=== PATIENT | female | born 1935 | race Caucasian/White ===

== ENCOUNTER 2024-07-02 09:43 | Outpatient (AMB) | payer MEDICARE, BC, SELFPAY ==
[2024-07-02 10:14] VITALS: BP 96/57; PULSE 57; RESP 18; TEMP 36.3; O2SAT 92; BMI 29.9
--- NOTE | 2024-07-02 10:14 | ORTHONT_ITS ---
Vital signs 07/02/24 10:14 Height 1.52 m Height Method Stated Weight 69.116 kg Weight Measurement Method Standing Scale BMI 29.9 BP 96/57 L Blood Pressure Source Automatic Cuff Blood Pressure Location Left Upper Arm Position Sitting Respiration 18 Pulse 57 L Pulse Source Monitor Temp 97.4 F Temp Source Temporal Artery Scan Pulse Oximetry (%) 92 L Oxygen Delivery Method Room Air Med/Allergies Allergies & Medications Allergies latex Allergy (Severe, Verified 07/02/24 10:15) ITCHING,WELTS Penicillins Allergy (Severe, Verified 07/02/24 10:15) ANAPHYLATIC Medication Reconciliation hydrocodone 5 mg-acetaminophen 325 mg tablet 1 tab PO Q12H PRN pain #14 tabs 04/21/23 [Rx Confirmed 07/02/24] meloxicam 7.5 mg tablet 7.5 mg PO QDAY #14 tabs 04/23/24 [Rx Confirmed 07/02/24] alprazolam 0.5 mg tablet 0.5 mg PO QDAY 06/11/24 [History Confirmed 07/02/24] atorvastatin 40 mg tablet 40 mg PO QDAY 06/11/24 [History Confirmed 07/02/24] benazepril 40 mg tablet 40 mg PO QDAY 06/11/24 [History Confirmed 07/02/24] gabapentin 300 mg capsule 300 mg PO QDAY 06/11/24 [History Confirmed 07/02/24] semaglutide 1 mg/dose (4 mg/3 mL) subcutaneous pen injector (Ozempic) 1 mg subcut QWEEK 06/11/24 [History Confirmed 07/02/24] Subjective Visit Visit for: follow up visit and knee Immunization / Flu Flu Vaccine in the Last 12 Months: No Flu Vaccine Exclusion Criteria: No Exclusion Criteria History of Present Illness Chief complaint: FOLLOW Date of injury / onset of symptoms: FELL 3-4 MONTHS AGO Tia is a pleasant 88-year-old female who had a fall directly onto her knee in April 23, 2024. She was delayed in getting to see us. She did wear a knee brace but has been walking around on it With minimal pain. She is able to perform a straight leg raise and walk with little difficulty. She does have a history of left knee arthritis. She would like a left knee injection today Personal History Occupation: RETIRED Red flag PMH: none Pain Pain level (0-10): 5 Pain duration: WITH MOVEMENT Pain location: outside (lateral) and other (specify) (LEG) Pain quality: sharp Pain timing: increases with activity Associated signs & symptoms: weakness, stiffness and none Ambulatory data Ambulatory device: walker Treatments Improvement with previous injections: No Improvement with PT: No Improvement with NSAIDS: n/a Review of Systems Review of Systems: All systems negative unless otherwise noted in HPI. Exam Exam Patient is in no acute distress and is cooperative with the examination today. Breathing is nonlabored. Patient has a normal mood and affect. The patient has a gait that is [nonantalgic] Bilateral extremities were evaluated and demonstrates sensation intact to light touch. Palpable pedal pulses are present. No significant edema is present. Bilateral hips were examined. The patient has no pain with log roll of the hips. Internal rotation to 30 degrees and external rotation to 30 degrees is painless. Negative FADIR. Right knee was examined today. The right knee is in reasonable alignment. Range of motion from 0-120 degrees. Knee is stable to varus and valgus as well as AP translation with <5mm. Patient has a negative McMurrays. There is no pain with patellofemoral compression and no crepitus noted. The knee is nontender to palpation. Left knee was examined today. The left knee is in [neutral] alignment. Range of motion from [0-120] degrees. Knee is stable to varus and valgus as well as AP translation with <5mm. Patient has a [negative] [place]. There is [no] pain with patellofemoral compression and [no] crepitus noted. The knee is [nontender] to palpation [diffusely]. She is able to perform a straight leg raise X-rays demonstrate in the third of the right ankle left knee. There is a patella fracture that can still be visualized. Appears to be stable and has not moved in the last 3 months. Assessment and Plan Problem List (1) Left patella fracture: Status: Acute Plan: Patient is a 88-year-old female with left knee pain and left knee arthritis. We discussed nonoperative and operative options. He is on meloxicam currently and has a history of osteoporotic fractures. We discussed that she may benefit from being on a bone building medication.She would like a left knee injection today Recommend knee cortisone injection as patient would like to proceed with conservative treatment at this time. The risks and benefits of the procedure were reviewed with the patient and patient gave verbal consent to continue with the procedure. Procedure: performed by Dr. Rahman Using sterile technique the left knee was thoroughly prepped with alcohol, and approximately 1 cc of Kenalog 40 mg/mL and 4 cc of 1% lidocaine was injected without resistance into the medial tibial femoral joint space. The patient tolerated the procedure well. (2) Arthritis of left knee: Status: Acute Advanced Care Planning Discussion Advance care planning discussed with:: patient Office Procedures GNS Level of Care Nursing/Assessment Patient Status: Established Patient Nursing Assessment/Reassesment: Medication Reconciliation, Update PMH in EMR and Vital Signs Coordination of Care: Complex Care and Chronic Disease 1-5, Education Complex Pt/Fam, Consent,records obtained, informed consent, Results/Orders obtained and Staff clarify orders Established Patient Charge Established Patient Point Assignment: 95 Established Patient Point Charge: EP Level 3 (80-115) Surgical Proc/IM SQ injection Major Surgical Procedure: Yes (KNEE INJECTION ) Medication Given Medication Given Medication Given: Yes Documented Dose Given: 20 Route: Infiitration Medication Given Medication Given Medication Given: Yes Documented Dose Given: 1 Route: Infiitration Office Meds Xylocaine 10 mg/mL (1 %) injection solution Performing Provider: Federico Rahman MD Performing Location: [facility] Administered by: Federico Rahman MD on 07/02/24 11:10 Dose Route Admin Location Dispensed Lot Number Expiration Date [place] Glass Sagger 20 mL Infiltration 20 mL [id number] triamcinolone acetonide 40 mg/mL suspension for injection Performing Provider: Federico Rahman MD Performing Location: [facility] Administered by: Federico Rahman MD on 07/02/24 11:10 Dose Route Admin Location Dispensed Lot Number Expiration Date [facility] Glass Sagger 40 mg intra-articular 1 mL [id number] Past Medical History Past Medical History Have you ever been diagnosed with any of the following: Cardiology Problems Congestive Heart Failure: No Hypertension: Yes Respiratory Problems Chronic Obstructive Pulmonary Disease (COPD): No Smoking: No Smoking Cessation Counseling: No Smoking Exposure: No Tobacco Use: No Genital/Urinary Problems Renal Disease: No Musculoskeletal Problems Arthritis: Yes Endocrine Problems Diabetes Mellitus Type 1: No Diabetes Mellitus Type 2: Yes
== END 2024-07-02 10:45 | disposition home or self-care (01) ==
LOC: HODSRG 09:44
PROVIDERS: PCP Family Medicine; Referring Provider Family Medicine; Supervising Provider Orthopaedic Surgery Adult Reconstructive Orthopaedic Surgery; Visit Provider Orthopaedic Surgery Adult Reconstructive Orthopaedic Surgery
DX: S82.002D Unspecified fracture of left patella, subsequent encounter for closed fracture with routine healing (principal); W19.XXXD Unspecified fall, subsequent encounter; M17.12 Unilateral primary osteoarthritis, left knee; M25.562 Pain in left knee; I10 Essential (primary) hypertension
CPT/HCPCS: 20610; 99213; J3301; J3490; G0463

== ENCOUNTER → 2024-07-30 | Outpatient (CLI) | payer MEDICARE, BC, SELFPAY ==
[2024-07-30 18:11] LABS: Glucose Estimated Average 171 mg/dL (80-131); Hemoglobin A1C 7.6 % Hgb (4.8-6.0)
[2024-07-30 18:12] LABS: Anion Gap 8 (7-16); BUN/Creatinine Ratio 26 Ratio (12-20); Blood Urea Nitrogen 31 mg/dL (9-23); Calcium 9.4 mg/dL (8.3-10.6); Carbon Dioxide 26.5 mMol/L (20.0-31.0); Chloride 108 mMol/L (98-107); Creatinine (Component) 1.2 mg/dL (0.6-1.3); Glucose 150 mg/dL (74-106); Osmolality,Calculated 292 (275-295); Potassium 4.2 mMol/L (3.4-5.1); Sodium 142 mMol/L (136-145); Thyroid Stimulating Hormone 2.81 uIU/mL (0.55-4.78); eGFR 44 See Note
== END | disposition home or self-care (01) ==
LOC: COPL 16:23
PROVIDERS: PCP Family Medicine; Referring Provider Family Medicine; Visit Provider Family Medicine
DX: E11.9 Type 2 diabetes mellitus without complications (principal); I10 Essential (primary) hypertension
CPT/HCPCS: 36415; 80048; 83036; 84443

== ENCOUNTER → 2024-09-20 | Outpatient (CLI) | payer MEDICARE, BC, SELFPAY ==
--- NOTE | 2024-09-20 12:30 | XR_ITS ---
Examination: Abdomen sonogram, Limited Date and time of exam: September 20, 2024 1259 hours INDICATIONS: Midabdominal left noticed beginning 8 years ago Technique: Real-time cuello scale transabdominal sonographic images of the upper abdomen obtained. Findings: No cystic or solid mass No hernia defect IMPRESSION: No cystic or solid mass
--- NOTE | 2024-09-20 13:00 | XR_ITS ---
Examination: Duplex scan of the upper extremity, unilateral right Date and time of exam: September 20, 2024 1306 hours INDICATIONS: Right arm swelling and pain beginning one week ago Technique: Duplex scan of the extremity veins using B-mode/grayscale imaging and Doppler spectral analysis and color flow Attention is directed to internal echogenicity, compression and augmentation involving these veins, color flow assessment, spectral analysis Findings: Major deep venous structures in the extremity demonstrate normal course and caliber. There is no evidence of deep vein thrombosis. Normal color flow and spectral analysis Impression: Negative for DVT..
== END | disposition home or self-care (01) ==
LOC: CDIM 12:23
PROVIDERS: PCP Family Medicine; Referring Provider Family Medicine; Visit Provider Family Medicine
DX: R22.9 Localized swelling, mass and lump, unspecified (principal); R22.2 Localized swelling, mass and lump, trunk; R22.31 Localized swelling, mass and lump, right upper limb
CPT/HCPCS: 76705; 93971

== ENCOUNTER 2024-10-07 13:32 | Emergency (ER) | payer MEDICARE, BC, SELFPAY ==
[2024-10-07 13:55] VITALS: PULSE 54; RESP 16; O2SAT 87
[2024-10-07 14:30] VITALS: BP 135/69; RESP 16; TEMP 37.4; O2SAT 96
--- NOTE | 2024-10-07 15:02 | XR_ITS ---
Examination: CT brain head without contrast. 2-D sagittal coronal reconstructions Date and time of exam:October 07, 2024 1542 hours Comparison April 23, 2024 INDICATIONS: Altered mental status beginning this morning CTDI: vol (mGy):48.3 DLP: (mGycm):968 Technique: Multiple CT axial sections of the brain have been obtained, 5 mm slice thickness. Contrast has not been administered. 2-D sagittal, coronal reconstructions have been obtained Low dose protocols were performed. One or more of the following dose reduction techniques were used; automated exposure control, adjustment of the mA and/or KV according to patient size, use of iterative reconstruction technique. Findings: No significant ventricular enlargement. 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 No mass effect or midline shift Basal cisterns are not remarkable. Fourth ventricle is midline. Cranial vault intact. Impression: Negative for acute hemorrhage, mass effect or midline shift Advise clinical correlation follow-up accordingly
--- NOTE | 2024-10-07 15:05 | EKG_ITS ---
[facility] Test Date: 2024-10-07 Pat Name: SONALI GARCIA Department: Room: - Gender: Female Instructional Support Specialist: : [id number] Requested By: Ellyn Chambers Order Number: [id number] Reading MD: Ellyn Chambers Measurements Intervals [place] Rate: 51 P: 37 AK: 169 QRS: -30 QRSD: 108 T: 44 QT: 432 QTc: 399 Interpretive Statements SINUS BRADYCARDIA BORDERLINE LEFT AXIS DEVIATION [QRS AXIS < -20] Compared to ECG 04/23/2024 21:50:37 No significant changes /store/S0/[id number].pdf
--- NOTE | 2024-10-07 15:05 | XR_ITS ---
Examination: AP chest single view Technique one AP portable semiupright chest single view Exam date and time: October 07, 2024 1555 hours INDICATIONS: Shortness of breath today. FINDINGS: Normal heart size. No lobar pneumonia or pulmonary edema Prominent osteopenia with old right-sided rib fractures IMPRESSION: No pneumonia or pulmonary edema
--- NOTE | 2024-10-07 15:19 | PD.EDAMS ---
Altered Mental Status RME/HPI General Chief Complaint: Altered Mental Status Stated Complaint: AMS Time Seen by Provider: 10/07/24 14:31 Arrival date/time: 10/07/24 13:32 RME / HPI RME / HPI narrative: Patient is a 89-year-old female with past medical history of hypertension and type 2 diabetes who presented to the ED on 10/07/2024 due to altered mental status starting this morning around 7 am. According to the daughter who is present at bedside, patient was not her usual self and was confused, speaking incomprehensibly, not localizing her gaze, and exhibiting generalized weakness. There was no focal neurologic deficit or facial droop, numbness or single sided weakness. Due to concern for stroke the home RN recommended coming to the hospital. By the time of my evaluation around 2 pm the patient was back to her baseline according to daughter. Patient is awake, interactive, conversational, and oriented x3. Related Data Home Medications ?Medication ?Instructions ?Recorded ?Confirmed alprazolam 0.5 mg tablet 0.5 mg PO QDAY 06/11/24 07/02/24 atorvastatin 40 mg tablet 40 mg PO QDAY 06/11/24 07/02/24 benazepril 40 mg tablet 40 mg PO QDAY 06/11/24 07/02/24 gabapentin 300 mg capsule 300 mg PO QDAY 06/11/24 07/02/24 semaglutide 1 mg/dose (4 mg/3 mL) 1 mg subcut QWEEK 06/11/24 07/02/24 subcutaneous pen injector (Ozempic) Previous Rx's ?Medication ?Instructions ?Recorded hydrocodone 5 mg-acetaminophen 325 1 tab PO Q12H PRN pain #14 tabs 04/21/23 mg tablet meloxicam 7.5 mg tablet 7.5 mg PO QDAY #14 tabs 04/23/24 nitrofurantoin 100 mg PO Q12H 5 days #10 caps 10/07/24 monohydrate/macrocrystals 100 mg capsule (Macrobid) Allergies Allergy/AdvReac Type Severity Reaction Status Date / Time latex Allergy Severe ITCHING,WEL Verified 07/02/24 10:15 TS Penicillins Allergy Severe ANAPHYLATIC Verified 07/02/24 10:15 ED Exam Narrative Physical exam: Physical Exam General: Awake and in no acute distress. Conversational and non-toxic appearing. HEENT: Normocephalic, atraumatic, mucous membranes moist. Heart: Regular rate and rhythm, no murmurs. Lungs: Clear to auscultation with no wheezing or crackles. Abdomen: Soft, nondistended, nontender, positive bowel sounds. ?No guarding or rebound tenderness. Neurologic: Alert and oriented x3, no gross neurological deficit, and patient able to move all 4 extremities. Extremities: No edema. Skin: No rash or ecchymoses. Course Quality Measures none Orders Category Date Time Status EKG (ED ONLY) *Do not use* NOW Care 10/07/24 15:[address] head/brain wo con Stat Exams 10/07/24 15:02 Completed CXR [XR chest 1V] Stat Exams 10/07/24 15:05 Completed EKG (ED Only) Stat Exams 10/07/24 15:05 Draft Acetaminophen Stat Lab 10/07/24 15:35 Completed Alcohol, Blood Medical Stat Lab 10/07/24 15:35 Completed CBC Stat Lab 10/07/24 15:35 Completed CMP [Comprehensive Metabolic Panel] Stat Lab 10/07/24 15:35 Completed Drug Screen,Urine Stat Lab 10/07/24 16:25 Completed Magnesium Stat Lab 10/07/24 15:35 Completed Partial Thromboplastin Time Stat Lab 10/07/24 15:35 Completed Prothrombin Time with INR Stat Lab 10/07/24 15:35 Completed Thyroid Stimulating Hormone Stat Lab 10/07/24 15:35 Completed Urinalysis, C/S if Indicated Stat Lab 10/07/24 16:25 Completed Urine Culture Stat Lab 10/07/24 16:25 Received Vital Signs Vital signs: Vital Signs Temperature 99.3 F 10/07/24 14:30 Respiratory Rate 16 10/07/24 14:30 Blood Pressure 135/69 H 10/07/24 14:30 Pulse Oximetry (%) 96 10/07/24 14:30 Oxygen Delivery Method Room Air 10/07/24 14:30 Procedures -ED EKG Interpretation #1: Date of EK10/07/24 Time of EK:38 Rate: 51 Interpretation: Interpreted by me EKG Impression: Normal sinus rhythm, [place] deviation (left), No acute ST-T changes and Normal QRS Altered Mental Status MDM Narrative MDM Narrative:: Workup is consistent with UTI which may be a cause for the patient's confusion and altered mental status this morning. I am less concerned for stroke or even TIA with the described presentation as there was no focal neurologic deficits described and more like generalized weakness and confusion. Patient will be sent on PO antibiotics as her mentation is back to baseline and she is able to take PO. Patient data External records reviewed:: [facility] previous records Clinical information provided by:: patient and family Social determinants that could affect healthcare access:: none Patient has the following chronic illnesses:: As above How is presenting disease/condition affected by chronic disease/condition?: uneffected by Evaluation data The following diagnostics were reviewed and interpreted by me:: lab results and radiology exam(s) Lab and/or radiology exams considered but not ordered:: Ordered Interpretation Summary: UA is showing 4+ bacteria, 3 WBCs, but no leukocyte esterase and no nitrites. WBC is high at 17.4. CXR was normal, no pneumonia according to my interpretation. Medications / Prescriptions Medications or Prescriptions considered but not ordered:: Given Medication administrations:: Given Consultations Consultation(s) initiated? (list below): No Diagnosis Differential diagnosis altered mental status: altered mental status and delirium Most likely diagnosis given after review of the tests above:: Acute metabolic encephalopathy secondary to UTI Admission Indicated Admission indicated?: not indicated Explain why admission is indicated or not indicated:: Patient back to baseline mental status and cause of AMS found is UTI and can be sent on PO abx. Admission Request Was there a request for admission?: No Disposition Plan Disposition Plan: Discharge Discharge Attestation Discharge Attestation: The patient and all family members were given an opportunity to ask questions and understood the discharge instructions. Discharge instructions specifically effects, indications for sooner follow up or return to the emergency department, and the expected course of current diagnosis. Patient condition: Stable Discharge Plan Plan Patient Disposition: HOME (Self Care) Patient condition on transfer: Stable Prescriptions/Referrals Prescriptions/Med Rec: New nitrofurantoin monohyd/m-cryst [Macrobid] 100 mg capsule 100 mg PO Q12H 5 Days Qty: 10 0RF Rx Instructions: must administer with a meal/food No Action Ozempic 1 mg/dose (4 mg/3 mL) pen injector 1 mg subcut QWEEK gabapentin 300 mg capsule 300 mg PO QDAY alprazolam 0.5 mg tablet 0.5 mg PO QDAY atorvastatin 40 mg tablet 40 mg PO QDAY benazepril 40 mg tablet 40 mg PO QDAY hydrocodone-acetaminophen 5-325 mg tablet 1 tab PO Q12H MDD 2 tabs PRN (Reason: pain) Qty: 14 0RF meloxicam 7.5 mg tablet 7.5 mg PO QDAY Qty: 14 0RF Referrals: Hiral Goss MD [Primary Care Provider] - In 1 week Problem List Clinical Impression: Acute metabolic encephalopathy, Urinary tract infection Patient/Caregiver Discharge Instructions Discharge Activity: activity as tolerated and resume usual activities Education Materials: Urinary Tract Infections in Women, ED Confusion, ED CYSTITIS Female Adult Additional Instructions: Today Julissa was evaluated for possible causes of confusion or what we call altered mental status. A CT scan of the head was negative for any sort of bleed or other possible cause of change in mentation. Due to the lack of specific neurological deficits, a stroke or TIA are probably less likely for the symptoms that prompted today's visit. She was found to have bacteria in her urine most likely indicative of an infection which is common to cause confusion in the elderly. Please take the prescribed antibiotic for the next 5 days. Please follow up with your primary doctor in the next week to ensure they check the urine culture taken while here at the hospital. Return to the ED if symptoms return or worsen. Thank you for allowing us to participate in your care today. Print Language: Nepali Stand Alone Forms: Maryjane Award Info., Patient Portal Info Letter
[2024-10-07 15:41] VITALS: BP 130/64; PULSE 67; RESP 18; O2SAT 92
[2024-10-07 15:41] LABS: Basophils # (Auto) 0.1 Thou/mm3 (0.0-0.2); Basophils % (Auto) 0 % (0-2.5); Eosinophils # (Auto) 0.1 Thou/mm3 (0.0-0.5); Eosinophils % (Auto) 1 % (0-10); Hematocrit 36.6 % (36.0-46.0); Hemoglobin 11.8 g/dL (12.0-16.0); Immature Granulocytes % (Auto) 0 % (0-0); Immature Granulocytes Auto 0.07 Thou/mm3 (0.00-0.00); Lymphocytes # (Auto) 2.4 Thou/mm3 (1.0-4.8); Lymphocytes % (Auto) 14 % (10-50); Mean Corpuscular HGB Conc 32.2 g/dl (31.0-37.0); Mean Corpuscular Hemoglobin 31.1 pg (25.0-35.0); Mean Corpuscular Volume 97 fL (80-100); Monocytes # (Auto) 1.1 Thou/mm3 (0.0-0.8); Monocytes % (Auto) 6 % (0-12); Neutrophils # (Auto) 13.7 Thou/mm3 (1.8-7.7); Neutrophils % (Auto) 79 % (37-80); Nucleated Red Blood Cell % 0 /100 WBC (0); Platelet Count 136 Thou/mm3 (140-440); RDW Standard Deviation 51.3 fL (36.4-46.3); Red Blood Count 3.79 Miln/mm3 (4.00-5.20); White Blood Count 17.4 Thou/mm3 (3.6-11.0)
[2024-10-07 16:01] LABS: Partial Thromboplastin Time 21.4 Seconds (22.0-36.0); Prothrombin Time 11.3 Seconds (9.0-12.2)
[2024-10-07 16:17] VITALS: BP 145/69; PULSE 57; RESP 19; TEMP 37.5; O2SAT 100
[2024-10-07 16:19] LABS: Acetaminophen < 2.0 mcg/mL (10.0-20.0); Alanine Aminotransferase 14 U/L (10-49); Albumin, Serum 3.9 gm/dL (3.4-4.8); Albumin/Globulin Ratio 1.9 (1.2-2.2); Alcohol, Blood Medical < 10.0 mg/dL (0-10.0); Alkaline Phosphatase 96 U/L (46-116); Anion Gap 7 (7-16); Aspartate Amino Transferase 19 U/L (0-34); BUN/Creatinine Ratio 30 Ratio (12-20); Bilirubin,Total 0.8 mg/dL (0.3-1.2); Blood Urea Nitrogen 33 mg/dL (9-23); Calcium 8.7 mg/dL (8.3-10.6); Calcium (Corrected) 8.8 mg/dL (8.5-10.1); Carbon Dioxide 27.9 mMol/L (20.0-31.0); Chloride 108 mMol/L (98-107); Creatinine (Component) 1.1 mg/dL (0.6-1.3); Globulin 2.1 gm/dL (2.3-3.5); Glucose 107 mg/dL (74-106); Magnesium 2.2 mg/dL (1.6-2.6); Osmolality,Calculated 292 (275-295); Potassium 3.9 mMol/L (3.4-5.1); Sodium 143 mMol/L (136-145); Thyroid Stimulating Hormone 1.06 uIU/mL (0.55-4.78); eGFR 49 See Note
[2024-10-07 16:37] LABS: Collection Type, Urine Clean Catch; RBC,Urine 0 /hpf (0-3)
[2024-10-07 17:01] LABS: Amphetamine/Methamp Scrn,U Negative (Negative); Barbiturate Screen,Urine Negative (Negative); Benzodiazepines Screen,Urine Negative (Negative); Benzoylecgonine Screen, Ur Negative (Negative); Fentanyl Screen,Urine Negative (Negative); Opiate Screen,Urine Negative (Negative); THC Screen,Urine Positive (Negative)
[2024-10-07 17:33] LABS: Bacteria,Urine 4+; Bilirubin,Urine Negative (Negative); Blood,Urine Negative (Negative); Clarity,Urine Clear (Clear/Hazy); Color,Urine Lt-Yellow (Lt Yel-Yel); Glucose, Urine 4+ (Negative); Ketones,Urine Negative (Negative); Leukocyte Esterase,Urine Negative (Negative); Nitrite,Urine Negative (Negative); PH,Urine 5.5 (5.0-7.0); Protein,Urine Negative (Neg - Trace); Specific Gravity,Urine 1.026 (1.001-1.035); Squamous Epithelial Cell,Urine 1 /hpf (0-5); Urobilinogen,Urine Negative mg/dL (0.0-1.0); WBC,Urine 3 /hpf (0-5)
[2024-10-07 17:35] LABS: Culture Indicated,Urine Yes
== END 2024-10-07 18:25 | disposition home or self-care (01) ==
PROVIDERS: Student in an Organized Health Care Education/Training Program; Emergency Provider Emergency Medicine; PCP Family Medicine
DX: N39.0 Urinary tract infection, site not specified (principal); G93.41 Metabolic encephalopathy; I10 Essential (primary) hypertension; E11.9 Type 2 diabetes mellitus without complications; Z88.0 Allergy status to penicillin; Z91.040 Latex allergy status
CPT/HCPCS: 36415; 70450; 71045; 80053; 80307; 80320; 80329; 81001; 83735; 84443; 85025; 85610; 85730; 87086; 93005; 99284; G0480

== ENCOUNTER → 2024-10-21 | Outpatient (CLI) | payer MEDICARE, BC, SELFPAY ==
--- NOTE | 2024-10-21 13:28 | XR_ITS ---
Examination: Arterial duplex upper extremity right Date and time of exam: October 21, 2024 1338 hrs. Indications: Right arm swelling and pain beginning 6 weeks ago Findings: Duplex sonographic imaging of the right upper extremity arteries using B-mode/Rodriguez scale imaging and Doppler spectral analysis and color flow. Findings: Elevated peak systolic velocities in the right brachial artery No arterial thrombus Impression: Elevated peak systolic arterial velocities in the right brachial artery, which may be secondary to stenosis proximal to the right brachial artery Suggest CTA right upper extremity with intravenous contrast follow-up
[2024-10-21 14:37] LABS: Anion Gap 8 (7-16); BUN/Creatinine Ratio 32 Ratio (12-20); Blood Urea Nitrogen 41 mg/dL (9-23); Calcium 9.1 mg/dL (8.3-10.6); Carbon Dioxide 28.7 mMol/L (20.0-31.0); Chloride 105 mMol/L (98-107); Creatinine (Component) 1.3 mg/dL (0.6-1.3); Glucose 129 mg/dL (74-106); Osmolality,Calculated 295 (275-295); Potassium 5.1 mMol/L (3.4-5.1); Sodium 142 mMol/L (136-145); eGFR 40 See Note
[2024-10-21 16:29] LABS: Glucose Estimated Average 134 mg/dL (80-131); Hemoglobin A1C 6.3 % Hgb (4.8-6.0)
== END | disposition home or self-care (01) ==
LOC: CDIM 13:52 → COPL 13:54 → CDIM 11-10 08:32
PROVIDERS: PCP Family Medicine; Referring Provider Family Medicine; Visit Provider Family Medicine
DX: I73.9 Peripheral vascular disease, unspecified (principal); R22.31 Localized swelling, mass and lump, right upper limb; E11.65 Type 2 diabetes mellitus with hyperglycemia
CPT/HCPCS: 36415; 80048; 83036; 93931

== ENCOUNTER → 2024-10-24 | Outpatient (CLI) | payer MEDICARE, BC, SELFPAY ==
--- NOTE | 2024-10-24 10:30 | XR_ITS ---
Examination: CTA right upper extremity with intravenous contrast 2-D reconstructions 3-D reconstructions, vascular Date and time of exam: October 24, 2024 at 1115 hrs. Indications: Right upper extremity pain numbness beginning 2 weeks ago, elevated peak systolic velocities in the right brachial artery Arterial Doppler study October 21, 2023 CTDI: vol (mGy) 26.95 DLP: (mGycm) 872.8 Technique: Multiple axial sections of the right lower extremity obtained 2-D sagittal and coronal reconstructions. 3-D angiographic renderings, 3-D volume renderings, 3D post processing, vascular maximum intensity projections obtained. Contrast administered is 100 cc Isovue-370. Low dose protocols were performed. One or more of the following dose reduction techniques were used; automated exposure control, adjustment of the mA and/or KV according to patient size, use of iterative reconstruction technique. Findings: Right subclavian right axillary arteries intact There is no filling of the brachial artery beyond its midportion and no filling of the radial or ulnar arteries or arterial segments of the hand on this study Impression: Essentially diagnostic study This patient should return at no charge for repeat CTA of the upper extremity with proper bolus contrast timing to opacify the arteries of the right arm
== END | disposition home or self-care (01) ==
LOC: CCTX 10:11
PROVIDERS: PCP Family Medicine; Referring Provider Family Medicine; Visit Provider Family Medicine
DX: I70.218 Atherosclerosis of native arteries of extremities with intermittent claudication, other extremity (principal)
CPT/HCPCS: 73206; A4649; Q9967

== ENCOUNTER → 2024-10-25 | Outpatient (CLI) | payer MEDICARE, BC, SELFPAY ==
--- NOTE | 2024-10-25 15:00 | XR_ITS ---
Examination: CTA right upper extremity with intravenous contrast 2-D reconstructions 3-D reconstructions, vascular Date and time of exam: October 25, 2024 1645 hrs. Indications: Right arm size pain beginning 6 weeks ago, at least systolic velocities in the right brachial artery Arterial duplex upper extremity study October 21, 2024 CTDI: vol (mGy) 27.4 DLP: (mGycm) 603 Technique: Multiple axial sections of the right upper extremity have been obtained. 3 mm slice thickness, 2-D sagittal and coronal reconstructions. 3-D angiographic renderings, 3-D volume renderings, 3D post processing, vascular maximum intensity projections obtained. Contrast administered is 100 cc Isovue-370. Low dose protocols were performed. One or more of the following dose reduction techniques were used; automated exposure control, adjustment of the mA and/or KV according to patient size, use of iterative reconstruction technique. Findings: Right subclavian right axillary artery intact Satisfactory opacification of the entire brachial artery with stenoses Intraosseous radial and ulnar arteries also fill to the wrist with no occlusions Impression: Negative for arterial stenoses right upper extremity arteries
== END | disposition home or self-care (01) ==
LOC: SCAT 15:30
PROVIDERS: PCP Family Medicine; Referring Provider Family Medicine; Visit Provider Family Medicine
DX: I70.218 Atherosclerosis of native arteries of extremities with intermittent claudication, other extremity (principal)
CPT/HCPCS: 73206; A4649; Q9967

== ENCOUNTER → 2024-11-04 | Outpatient (CLI) | payer MEDICARE, BC, SELFPAY ==
--- NOTE | 2024-11-04 11:15 | XR_ITS ---
Examination: Screening digital mammography, bilateral Computer aided detection 3-D breast Tomosynthesis, bilateral Date and time of exam: 11/04/2024, 11:15 AM Comparisons: Not available. If prior mammograms can be obtained recommend comparison with today's exam. Indications: Screening Technique: Nonmagnified MLO, CC views of the breasts to been obtained, reconstructed from 3-D Tomosynthesis images. R2 computer aided detection program utilized for evaluation of suspicious masses and/or abnormal calcifications. 3-D Tomosynthesis images obtained. Technologist: Findings: The breasts are heterogeneously dense, which may obscure small masses. No evidence of abnormal masses or suspicious calcifications. Impression: BI-RADS category 1: Negative findings (within normal) Recommend 1 year follow-up mammogram
== END | disposition home or self-care (01) ==
LOC: CDIM 11:04
PROVIDERS: Referring Provider Family Medicine; Visit Provider Family Medicine
DX: Z12.31 Encounter for screening mammogram for malignant neoplasm of breast (principal); R92.313 Mammographic fatty tissue density, bilateral breasts
CPT/HCPCS: 77063; 77067

== ENCOUNTER 2024-12-12 18:03 | Emergency (ER) | payer MEDICARE, BC, SELFPAY ==
[2024-12-12 18:10] VITALS: BP 110/66; PULSE 62; RESP 19; TEMP 36.8; O2SAT 96
[2024-12-12 18:33] VITALS: PULSE 59; RESP 19; O2SAT 97; BMI 27.4
--- NOTE | 2024-12-12 18:44 | PC.NURSE ---
PT BILL FROM HOME, HAD WITNESSED GROUND LEVEL FALL. PT DID HIT HER HEAD DID NOT HAVE ANY LOC, DENIES BLOOD THINNER. NO VISIBLE DEFORMITIES. PT DENYING ANY PAIN UPON ASSUMPTION OF CARE FROM EMS. PT REPORTS SHE NEEDS TO PEE, PLACED ON BEDPAN BY THIS RN. AWAITING PROVIDER EVALUATION
--- NOTE | 2024-12-12 18:54 | XR_ITS ---
Examination: CT lumbar spine, without contrast. 2-D sagittal reconstructions. 2-D coronal reconstructions. 3-D reconstructions. Date and time of exam:November hrs. Indications: Patient fell today with injury to lower back, lower back pain CTDI: vol (mGy):37 DLP: (mGycm):1724 Technique: Multiple 1.25 mm axial sections of the lumbar spine without intravenous contrast have been obtained. 2-D sagittal and coronal reconstructions have been obtained. 3-D reconstructions have been obtained. Low dose protocols were performed. One or more of the following dose reduction techniques were used; automated exposure control, adjustment of the mA and/or KV according to patient size, use of iterative reconstruction technique. Findings: Severe osteopenia Transpedicular lumbar fusion L2-S1 No acute lumbar fracture Lumbar pedicles, laminae transverse and posterior spinous processes intact Sacral segments appear intact Impression: No acute lumbar fracture
--- NOTE | 2024-12-12 18:54 | XR_ITS ---
Examination: CT cervical spine without contrast 2-D sagittal reconstructions 2-D coronal reconstructions 3-D reconstructions. Exam date and time:November hrs. Indications: Ground-level fall today with into the neck, neck pain CTDI:vol (mGy) 11.9 DLP: (mGycm) 255 Technique: Multiple 2 mm axial sections of the cervical spine have been obtained. The coronal and sagittal reconstructions have been obtained. 3-D reconstructions have been obtained. Low dose protocols were performed. One or more of the following dose reduction techniques were used; automated exposure control, adjustment of the mA and/or KV according to patient size, use of iterative reconstruction technique. Findings: Axial sections demonstrate intact base of the skull. C1 exhibit satisfactory relationship to the odontoid. No acute cervical vertebral body fracture seen. Alignment posterior spinous processes satisfactory. Impression: No acute cervical fracture.
--- NOTE | 2024-12-12 18:54 | XR_ITS ---
Examination: CT chest, without intravenous contrast. CT abdomen, without intravenous contrast. CT pelvis, without intravenous contrast. 2-D sagittal and coronal reconstructions. 3-D reconstructions. Date and time of exam:November hrs. Indications: Patient fell today with into the chest and abdomen, chest pain abdomen pain CTDI vol (mgy) 11.9 DLP (MGycm)726 Technique: Multiple CT images, 3.0 mm slice thickness, obtained chest, abdomen, pelvis, with the high-resolution 64 slice scanner.. Sagittal and coronal 2-D reconstructions are obtained. 3-D reconstructions Low dose protocols were performed. One or more of the following dose reduction techniques were used; automated exposure control, adjustment of the mA and/or KV according to patient size, use of iterative reconstruction technique. Findings: Thoracic aorta pulmonary arteries intact No hemopericardium No pneumothorax pulmonary contusion or hemothorax The manubrium the body the sternum intact No acute thoracic or lumbar vertebral body compression fracture Extensive transpedicular lumbar fusion Bilateral rib fractures No liver splenic or renal laceration on this noncontrast study No perinephric stranding Moderate cardiac gastric hernia No gallstones No pancreatic mass Abdominal aorta intact, no free blood in the abdomen Negative for peritoneal Colonic diverticulosis Urinary bladder Hips bones of the pelvis intact Impression: Thoracic aorta pulmonary arteries intact No hemopericardium, pneumothorax, pulmonary contusion or hemothorax No abdominal parenchymal laceration. Abdominal aorta intact No free blood in the abdomen. No acute fractures
--- NOTE | 2024-12-12 18:54 | XR_ITS ---
Examination: AP chest single view Technique one AP portable upright chest single view Exam date and time: December 12, 2024 1858 hrs. Comparison October 07, 2024 Indications: Shortness of breath beginning 2 days ago Findings: The film is rotated RPO Mild vascular congestion No lobar pneumonia Moderate osteopenia Impression: Mild vascular congestion
--- NOTE | 2024-12-12 18:54 | XR_ITS ---
Examination: CT maxillofacial, without intravenous contrast. 2-D sagittal reconstructions. 3-D reconstructions. Date and time of exam:December 12, 2024 1948 hrs. Indications: Patient fell today with injury to the face, facial pain CTDI: vol (mGy):17.2 DLP: (mGycm):301 Technique: Multiple axial images of maxillofacial region, 3.0 mm slice thickness. 2-D sagittal and coronal reconstructions. 3-D reconstructions. Low dose protocols were performed. One or more of the following dose reduction techniques were used; automated exposure control, adjustment of the mA and/or KV according to patient size, use of iterative reconstruction technique. Findings: Frontal bones intact Orbital rims intact with symmetrical optic globes No visible fracture No depression zygomatic arches Pterygoid bones maxilla, mandible intact Impression: No acute facial fracture.
--- NOTE | 2024-12-12 18:54 | EKG_ITS ---
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: : [id number] Requested By: Jose Guadalupe Amin Order Number: [id number] Reading MD: Jose Guadalupe Amin Measurements Intervals [place] Rate: 62 P: 78 IA: 211 QRS: -28 QRSD: 119 T: 59 QT: 421 QTc: 429 Interpretive Statements SINUS RHYTHM WITH FIRST DEGREE AV BLOCK WITH OCCASIONAL SUPRAVENTRICULAR PREMATURE COMPLEXES BORDERLINE LEFT AXIS DEVIATION [QRS AXIS < -20] MODERATE INTRAVENTRICULAR CONDUCTION DELAY [110+ ms QRS DURATION] Compared to ECG 10/07/2024 15:38:19 First degree AV block now present Intraventricular conduction delay now present Sinus bradycardia no longer present /store/S0/[id number]/[id number].pdf
--- NOTE | 2024-12-12 18:54 | XR_ITS ---
Examination: CT brain head without contrast. 2-D sagittal coronal reconstructions Date and time of exam:November hrs. Indications: Ground-level fall today with injury to head, head pain CTDI: vol (mGy):49.2 DLP: (mGycm):974 Technique: Multiple CT axial sections of the brain have been obtained, 5 mm slice thickness. Contrast has not been administered. 2-D sagittal, coronal reconstructions have been obtained Low dose protocols were performed. One or more of the following dose reduction techniques were used; automated exposure control, adjustment of the mA and/or KV according to patient size, use of iterative reconstruction technique. Findings: No significant ventricular enlargement. 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 No mass effect or midline shift Basal cisterns are not remarkable. Fourth ventricle is midline. Cranial vault intact. Impression: Negative for acute hemorrhage, mass effect or midline shift
--- NOTE | 2024-12-12 18:55 | XR_ITS ---
Examination: CT thoracic spine, without contrast. 2-D sagittal reconstructions. 2-D coronal reconstructions. 3-D reconstructions. Date and time of exam:November hrs. Indications: Patient fell today with injury of the upper back, upper back pain CTDI: vol (mGy):37 DLP: (mGycm):1324 Technique: Multiple 1.25 mm axial sections of the thoracic spine without venous contrast have been obtained. 2-D sagittal and coronal reconstructions have been obtained. 3-D reconstructions have been obtained. Low dose protocols were performed. One or more of the following dose reduction techniques were used; automated exposure control, adjustment of the mA and/or KV according to patient size, use of iterative reconstruction technique. Findings: Severe osteopenia No acute thoracic vertebral body compression fracture Thoracic pedicles, laminae and transverse and posterior spinous processes intact Moderate diffuse thoracic disc narrowing Axial images demonstrate no focal thoracic disc protrusion Impression: No acute thoracic fracture
--- NOTE | 2024-12-12 18:56 | PD.EDHIP ---
Lower Extremity Injury RME/HPI General Chief Complaint: Hip Injury/Pain Stated Complaint: FELL Time Seen by Provider: 12/12/24 18:45 Arrival date/time: 12/12/24 18:03 RME / HPI RME / HPI Narrative: This section includes all my notes and documentations, including HPI, PE, and ED course. Jose Guadalupe Chew MD HPI: 89 y/o female with Hx of Hypertension, Arthritis, and Diabetes Mellitus Type 2 presents to ED after falling at home just prior to arrival. While walking to the bathroom, she had a mechanical fall after losing her balance. She denies falling due to syncope or near syncope. She landed on the back of her head. No loss of consciousness. Slight headache. Has left hip pain. No neck pain or back pain. No chest pain or abdominal pain. No other limb pain. No other complaints. ROS: All negative except as documented in HPI. Physical Exam: General: Alert and oriented. No acute distress wearing still. Head: Small plum-sized hematoma in the occipital scalp noted. Eyes: Conjunctivae and lids clear. EOMI. PERRL. ENT: No nasal congestion. Pharynx normal. Tympanic membrane normal bilaterally. Neck: Supple. No tenderness. Heart: RRR. Lungs: No respiratory distress. Good air movement. No rhonchi, wheezing, rales. Chest: No tenderness. Abdomen: Soft and nontender. Normal bowel sounds. No distension. No rebound or guarding. Back: No tenderness. Legs: No clubbing, cyanosis, edema. Skin: Warm and dry. Neuro: Alert and oriented X 3. Cranial Nerves II-XII grossly intact. No peripheral motor deficits. Musculoskeletal: Equivocal left hip tenderness. All other major joints and bones are not tender with no limited ROM. I reviewed all diagnostic test results. My interpretation of the EKG is sinus rhythm with no acute ST?T changes. My interpretation of the chest x-ray is NAD. My interpretation of the left femur x-rays is NAD. My review of the CT reports (head, facial, chest/abdomen/pelvis, cervical/thoracic/lumbar spine) is no acute findings. Blood tests and urine tests remarkable for UTI. At this point, diagnoses include fall with no serious injury and UTI. Treatment here included NS and Rocephin. Remained stable. Recommended outpatient treatment. Based on my best medical judgment, made decision no further evaluation or treatment indicated at this time. Patient and daughter understands and agrees to the discharge instructions customized and printed, see below. Discharge instructions from Dr. Chew: 1. After extensive evaluation, fortunately there is no very serious injury.? Such as brain injury or broken neck or broken back or other broken bone or internal organ injury. 2. For UTI, take cefdinir to kill the germs causing the infection. For good hydration, increase oral fluid and maintain clear urine. If dark or yellow, increase oral fluid. 3. Ibuprofen and Tylenol as needed. 4. See a private doctor on 12/16/2024 for recheck and further care. Ask to review all test results and official radiology reports, to make sure you receive all necessary follow-ups and monitoring, including final urine culture results. 5. Seek immediate medical care with severe and persistent headache, persistent vomiting, being extremely drowsy when you should be completely alert and awake, or with any concerns. Jose Guadalupe Chew MD Related Data Home Medications ?Medication ?Instructions ?Recorded ?Confirmed alprazolam 0.5 mg tablet 0.5 mg PO QDAY 06/11/24 07/02/24 atorvastatin 40 mg tablet 40 mg PO QDAY 06/11/24 07/02/24 benazepril 40 mg tablet 40 mg PO QDAY 06/11/24 07/02/24 gabapentin 300 mg capsule 300 mg PO QDAY 06/11/24 07/02/24 semaglutide 1 mg/dose (4 mg/3 mL) 1 mg subcut QWEEK 06/11/24 07/02/24 subcutaneous pen injector (Ozempic) Previous Rx's ?Medication ?Instructions ?Recorded hydrocodone 5 mg-acetaminophen 325 1 tab PO Q12H PRN pain #14 tabs 04/21/23 mg tablet meloxicam 7.5 mg tablet 7.5 mg PO QDAY #14 tabs 04/23/24 cefdinir 300 mg capsule 300 mg PO BID #14 caps 12/12/24 Allergies Allergy/AdvReac Type Severity Reaction Status Date / Time latex Allergy Severe ITCHING,WEL Verified 12/12/24 18:39 TS Penicillins Allergy Severe ANAPHYLATIC Verified 12/12/24 18:39 Review of Systems Review of Systems Systems Reviewed: All systems reviewed, normal except as documented Narrative Review of Systems: Refer to HPI above Past Medical History Past Medical History CARDIAC: Positive Hypertension MUSCULOSKELETAL: Positive Arthritis ENDOCRINE: Positive Diabetes Mellitus Type 2 Social History SMOKING STATUS: Former smoker ED Exam Narrative Physical exam: Refer to HPI above Course Quality Measures none Orders Category Date Time Status Bedside COVID-19 Antigen Test NOW Care 12/12/24 18:53 Completed Bedside Influenza A&B Antigen Test NOW Care 12/12/24 18:53 Completed EKG (ED ONLY) *Do not use* NOW Care 12/12/24 18:54 Completed Saline [Insert IV] NOW Care 12/12/24 18:53 Completed Straight [In and Out Catheter] X1 Care 12/12/24 18:[address] cervical spine wo con Stat Exams 12/12/24 18:[address] chest abdomen pelvis wo Stat Exams 12/12/24 18:[address] facial bones wo con Stat Exams 12/12/24 18:[address] head/brain wo con Stat Exams 12/12/24 18:[address] lumbar spine wo con Stat Exams 12/12/24 18:[address] thoracic spine wo con Stat Exams 12/12/24 18:55 Completed EKG (ED Only) Stat Exams 12/12/24 18:54 Draft XR chest 1V portable Stat Exams 12/12/24 18:54 Completed XR femur LT 2V Stat Exams 12/12/24 19:04 Completed CBC Stat Lab 12/12/24 19:12 Completed CMP [Comprehensive Metabolic Panel] Stat Lab 12/12/24 19:12 Completed Free T4 (Free Thyroxine) Stat Lab 12/12/24 19:12 Completed Magnesium Stat Lab 12/12/24 19:12 Completed PT [Prothrombin Time with INR] Stat Lab 12/12/24 19:12 Completed PTT [Partial Thromboplastin Time] Stat Lab 12/12/24 19:12 Completed TSH [Thyroid Stimulating Hormone] Stat Lab 12/12/24 19:12 Completed Troponin I Stat Lab 12/12/24 19:12 Completed UA, C/S IF [Urinalysis, C/S if Indicated] Stat Lab 12/12/24 17:00 Completed Urine Culture Stat Lab 12/12/24 17:00 Received Sodium Chloride 0.9% 1000 ml [Ns] 1,000 ml Med 12/12/24 18:53 Discontinued IV 999 mls/hr cefTRIAXone/D5w 1gm IV premix [Rocephin/D5w 1gm IV Med 12/12/24 20:03 Discontinued premix] 1 gm in 50 ml IV X1 Vital Signs Vital signs: Vital Signs Temperature 98.2 F 12/12/24 18:10 Pulse Rate 62 12/12/24 18:10 Respiratory Rate 19 12/12/24 18:10 Blood Pressure 110/66 12/12/24 18:10 Pulse Oximetry (%) 96 12/12/24 18:10 Oxygen Delivery Method Room Air 12/12/24 18:10 Extremity Injury, Lower MDM Narrative MDM Narrative:: Scribe Attestation: Anisha Nguyen am scribing for and in the presence of Dr. Chew. Provider Notation: Although this document has been carefully reviewed, there may still be some phonetic and other typographical errors. These errors are purely grammatical due to imperfections in the software program and should not be construed in any way to compromise the substance of the patient's medical care during this visit. Patient data External records reviewed:: [facility] previous records (Prior ED records reviewed from 10/07/24. Patient was last seen for Acute metabolic encephalopathy.) Clinical information provided by:: patient Social determinants that could affect healthcare access:: none Patient has the following chronic illnesses:: Hypertension, Arthritis, and Diabetes Mellitus Type 2 How is presenting disease/condition affected by chronic disease/condition?: exacerbated by Evaluation data The following diagnostics were reviewed and interpreted by me:: lab results, radiology exam(s) and EKG tracing(s) (My interpretation of the EKG is: Sinus rhythm (62 bpm) with PACs and nonspecific ST-T changes. Jose Guadalupe Chew MD) Lab and/or radiology exams considered but not ordered:: None Interpretation Summary: Normal diagnostics except UTI Medications / Prescriptions Medications or Prescriptions considered but not ordered:: None Medication administrations:: Medication Administration History Discontinued Medications Sodium Chloride (Ns) 1,000 mls @ 999 mls/hr IV .Q1H1M ONE Stop: 12/12/24 19:53 Last Infusion: 12/12/24 20:59 Dose: Infused Documented By: Admin: 12/12/24 19:14 Dose: 999 mls/hr Documented By: CVL Ceftriaxone Sodium/Dextrose (Rocephin/D5w 1gm Iv Premix) 1 gm in 50 mls @ 100 mls/hr IV X1 ONE Stop: 12/12/24 20:32 Last Infusion: 12/12/24 21:41 Dose: Infused Documented By: Admin: 12/12/24 21:08 Dose: 100 mls/hr Documented By: CVL RYAN, Moi Consultations Consultation(s) initiated? (list below): No Diagnosis Extremity Injury, Lower Differential Diagnosis: fracture of femur, fracture of hip and other (UTI, pneumonia, sepsis, brain injury, cervical fracture, internal organ injury) Most likely diagnosis given after review of the tests above:: Fall with no serious injury, UTI Admission Indicated Admission indicated?: not indicated Explain why admission is indicated or not indicated:: No criteria for admission. Admission Request Was there a request for admission?: No Disposition Plan Disposition Plan: Discharge Discharge Attestation Discharge Attestation: The patient and all family members were given an opportunity to ask questions and understood the discharge instructions. Discharge instructions specifically effects, indications for sooner follow up or return to the emergency department, and the expected course of current diagnosis. Patient condition: Stable Discharge Plan Plan Patient Disposition: HOME (Self Care) Prescriptions/Referrals Prescriptions/Med Rec: New cefdinir 300 mg capsule 300 mg PO BID Qty: 14 0RF No Action Ozempic 1 mg/dose (4 mg/3 mL) pen injector 1 mg subcut QWEEK gabapentin 300 mg capsule 300 mg PO QDAY alprazolam 0.5 mg tablet 0.5 mg PO QDAY atorvastatin 40 mg tablet 40 mg PO QDAY benazepril 40 mg tablet 40 mg PO QDAY hydrocodone-acetaminophen 5-325 mg tablet 1 tab PO Q12H MDD 2 tabs PRN (Reason: pain) Qty: 14 0RF meloxicam 7.5 mg tablet 7.5 mg PO QDAY Qty: 14 0RF Referrals: No Primary/Family,Physician [Primary Care Provider] - In 1 week Problem List Clinical Impression: UTI (urinary tract infection), Fall Patient/Caregiver Discharge Instructions Discharge Activity: activity as tolerated Education Materials: ED CYSTITIS Female Adult, ED Fall Prevention Additional Instructions: Discharge instructions from Dr. Chew: 1. After extensive evaluation, fortunately there is no very serious injury.? Such as brain injury or broken neck or broken back or other broken bone or internal organ injury. 2. For UTI, take cefdinir to kill the germs causing the infection. For good hydration, increase oral fluid and maintain clear urine. If dark or yellow, increase oral fluid. 3. Ibuprofen and Tylenol as needed. 4. See a private doctor on 12/16/2024 for recheck and further care. Ask to review all test results and official radiology reports, to make sure you receive all necessary follow-ups and monitoring, including final urine culture results. 5. Seek immediate medical care with severe and persistent headache, persistent vomiting, being extremely drowsy when you should be completely alert and awake, or with any concerns. Print Language: Wolof Stand Alone Forms: Maryjane Award Info., Patient Portal Info Letter
--- NOTE | 2024-12-12 19:04 | XR_ITS ---
Examination: Left femur 2 views Technique one AP lateral left femur 2 views Exam date and time: December 12, 2024 at 1928 hrs. Indications: Left hip and femur pain beginning 3 days ago. Findings: Left hip bipolar hemiarthroplasty. Satisfactory alignment No loosening of the prosthetic components No fracture Shaft of femur intact Moderate right hip osteoarthritis Bones the pelvis intact Impression: Limited microangiopathy processes satisfactory. Shaft of the femur intact
[2024-12-12] MEDS: SODIUM CHLORIDE 0.9% 1000 ML 1,000 ML 999 ML IV (19:14)
[2024-12-12 19:15] VITALS: BP 139/60; PULSE 60; RESP 18; TEMP 37.2; O2SAT 94
[2024-12-12 19:16] LABS: Collection Type, Urine Clean Catch
[2024-12-12 19:20] LABS: Basophils % (Auto) 1 % (0-2.5); Eosinophils # (Auto) 0.2 Thou/mm3 (0.0-0.5); Eosinophils % (Auto) 3 % (0-10); Hematocrit 34.5 % (36.0-46.0); Hemoglobin 11.2 g/dL (12.0-16.0); Immature Granulocytes % (Auto) 1 % (0-0); Immature Granulocytes Auto 0.04 Thou/mm3 (0.00-0.00); Lymphocytes # (Auto) 1.7 Thou/mm3 (1.0-4.8); Lymphocytes % (Auto) 23 % (10-50); Mean Corpuscular HGB Conc 32.5 g/dl (31.0-37.0); Mean Corpuscular Hemoglobin 30.8 pg (25.0-35.0); Mean Corpuscular Volume 95 fL (80-100); Monocytes # (Auto) 0.5 Thou/mm3 (0.0-0.8); Monocytes % (Auto) 7 % (0-12); Neutrophils # (Auto) 4.6 Thou/mm3 (1.8-7.7); Neutrophils % (Auto) 65 % (37-80); Nucleated Red Blood Cell % 0 /100 WBC (0); Platelet Count 195 Thou/mm3 (140-440); RDW Standard Deviation 50.9 fL (36.4-46.3); Red Blood Count 3.64 Miln/mm3 (4.00-5.20)
[2024-12-12 19:26] LABS: Bilirubin,Urine Negative (Negative); Blood,Urine Negative (Negative); Clarity,Urine Turbid (Clear/Hazy); Color,Urine Yellow (Lt Yel-Yel); Glucose, Urine Negative (Negative); Hyaline Casts,Urine < 1 /hpf (0-1); Ketones,Urine Negative (Negative); Leukocyte Esterase,Urine Positive (Negative); Nitrite,Urine Negative (Negative); Protein,Urine Negative (Neg - Trace); RBC,Urine 3 /hpf (0-3); Specific Gravity,Urine 1.016 (1.001-1.035); Squamous Epithelial Cell,Urine < 1 /hpf (0-5); Urobilinogen,Urine Negative mg/dL (0.0-1.0); WBC,Urine 16 /hpf (0-5)
[2024-12-12 19:27] LABS: Culture Indicated,Urine Yes
[2024-12-12 19:33] LABS: INR 1.1 (0.9-1.3); Prothrombin Time 11.8 Seconds (9.0-12.2)
[2024-12-12 19:42] LABS: Alanine Aminotransferase 11 U/L (10-49); Albumin, Serum 3.9 gm/dL (3.4-4.8); Albumin/Globulin Ratio 1.6 (1.2-2.2); Alkaline Phosphatase 110 U/L (46-116); Anion Gap 6 (7-16); Aspartate Amino Transferase 25 U/L (0-34); BUN/Creatinine Ratio 23 Ratio (12-20); Bilirubin,Total 0.7 mg/dL (0.3-1.2); Blood Urea Nitrogen 32 mg/dL (9-23); Calcium (Corrected) 9.1 mg/dL (8.5-10.1); Carbon Dioxide 29.1 mMol/L (20.0-31.0); Chloride 107 mMol/L (98-107); Creatinine (Component) 1.4 mg/dL (0.6-1.3); Estimated Creatinine Clearance 25.6 mL/min (>60); Free T4 (Free Thyroxine) 1.02 ng/dL (0.89-1.76); Globulin 2.4 gm/dL (2.3-3.5); Glucose 161 mg/dL (74-106); Magnesium 2.2 mg/dL (1.6-2.6); Osmolality,Calculated 293 (275-295); Potassium 4.2 mMol/L (3.4-5.1); Sodium 142 mMol/L (136-145); Thyroid Stimulating Hormone 3.01 uIU/mL (0.55-4.78); Total Protein 6.3 gm/dL (5.7-8.2); Troponin I < 0.020 ng/mL (0.0-0.045); eGFR 36 See Note
[2024-12-12] MEDS: cefTRIAXone/D5w 1gm IV premix 1 GM/50 ML BAG IV (21:08)
[2024-12-12 22:49] VITALS: BP 164/82; PULSE 65; RESP 19; O2SAT 96
== END 2024-12-12 23:12 | disposition home or self-care (01) ==
PROVIDERS: Emergency Provider Emergency Medicine
DX: S89.92XA Unspecified injury of left lower leg, initial encounter (principal); N39.0 Urinary tract infection, site not specified; I10 Essential (primary) hypertension; S39.92XA Unspecified injury of lower back, initial encounter; S29.9XXA Unspecified injury of thorax, initial encounter; S09.93XA Unspecified injury of face, initial encounter; S00.03XA Contusion of scalp, initial encounter; R06.02 Shortness of breath; R07.9 Chest pain, unspecified; R10.9 Unspecified abdominal pain; I44.0 Atrioventricular block, first degree; I49.1 Atrial premature depolarization; W01.0XXA Fall on same level from slipping, tripping and stumbling without subsequent striking against object, initial encounter; Y93.01 Activity, walking, marching and hiking; Z87.891 Personal history of nicotine dependence
CPT/HCPCS: 36415; 70450; 70486; 71045; 71250; 72125; 72128; 72131; 73552; 74176; 80053; 81001; 83735; 84439; 84443; 84484; 85025; 85610; 85730; 87086; 87400; 87811; 93005; 96360; 96361; 96365; 99284; J0696; J7030

== ENCOUNTER → 2024-12-24 | Outpatient (CLI) | payer MEDICARE, BC, SELFPAY ==
[2024-12-24 11:33] LABS: Collection Type, Urine Clean Catch
[2024-12-24 13:37] LABS: Bilirubin,Urine Negative (Negative); Blood,Urine Negative (Negative); Clarity,Urine Clear (Clear/Hazy); Color,Urine Lt-Yellow (Lt Yel-Yel); Culture Indicated,Urine Not Indicated; Glucose, Urine Negative (Negative); Ketones,Urine Negative (Negative); Leukocyte Esterase,Urine Negative (Negative); Nitrite,Urine Negative (Negative); PH,Urine 6.5 (5.0-7.0); Protein,Urine Negative (Neg - Trace); RBC,Urine 1 /hpf (0-3); Specific Gravity,Urine 1.014 (1.001-1.035); Squamous Epithelial Cell,Urine 2 /hpf (0-5); Urobilinogen,Urine Negative mg/dL (0.0-1.0); WBC,Urine 1 /hpf (0-5)
== END | disposition home or self-care (01) ==
LOC: COPL 11:29 → SLDO 11:29
PROVIDERS: PCP Family Medicine; Referring Provider Family Medicine; Visit Provider Family Medicine
DX: N30.00 Acute cystitis without hematuria (principal); E11.65 Type 2 diabetes mellitus with hyperglycemia
CPT/HCPCS: 81001

== ENCOUNTER 2025-02-04 22:29 | Inpatient (IN) | payer MEDICARE, BC, SELFPAY ==
--- NOTE | 2025-02-04 22:32 | PD.EDAMS ---
Altered Mental Status RME/HPI General Chief Complaint: Altered Mental Status Stated Complaint: AMS Time Seen by Provider: 02/04/25 22:32 Arrival date/time: 02/04/25 22:29 RME / HPI RME / HPI narrative: Dr. Caldwell?s Main ED Evaluation: 89yo female with a history of DM, HTN, arthritis BIBA from home presents to the ED for a chief complaint of AMS. Patient was seen by me immediately upon arrival at 2228. Per EMS, family on scene noticed the patient went limp 1 hour [employer]. Patient was noted to be hypotensive on scene at 82/58 with a HR in the 50s and was saturating at 90% room air (placed on 12L/nonrebreather and went up to 98%). Blood sugar en route was 129. EMS started 1L NS en route. EMS endorses the family are poor historians. Patient is drowsy, but arousable and is unable to provide much history. Related Data Home Medications ?Medication ?Instructions ?Recorded ?Confirmed alprazolam 0.5 mg tablet 0.5 mg PO QDAY 06/11/24 07/02/24 atorvastatin 40 mg tablet 40 mg PO QDAY 06/11/24 07/02/24 benazepril 40 mg tablet 40 mg PO QDAY 06/11/24 07/02/24 gabapentin 300 mg capsule 300 mg PO QDAY 06/11/24 07/02/24 semaglutide 1 mg/dose (4 mg/3 mL) 1 mg subcut QWEEK 06/11/24 07/02/24 subcutaneous pen injector (Ozempic) Previous Rx's ?Medication ?Instructions ?Recorded hydrocodone 5 mg-acetaminophen 325 1 tab PO Q12H PRN pain #14 tabs 04/21/23 mg tablet meloxicam 7.5 mg tablet 7.5 mg PO QDAY #14 tabs 04/23/24 cefdinir 300 mg capsule 300 mg PO BID #14 caps 12/12/24 Allergies Allergy/AdvReac Type Severity Reaction Status Date / Time latex Allergy Severe ITCHING,WEL Verified 12/12/24 18:39 TS Penicillins Allergy Severe ANAPHYLATIC Verified 12/12/24 18:39 Review of Systems Review of Systems Systems Reviewed: All systems reviewed, normal except as documented Past Medical History Past Medical History CARDIAC: Positive Hypertension; Negative Congestive Heart Failure RESPIRATORY: Negative Chronic Obstructive Pulmonary Disease (COPD), Smoking, Smoking Cessation Counseling, Smoking Exposure or Tobacco Use GENITOURINARY: Negative Renal Disease MUSCULOSKELETAL: Positive Arthritis ENDOCRINE: Positive Diabetes Mellitus Type 2; Negative Diabetes Mellitus Type 1 Social History SMOKING STATUS: Former smoker ED Exam Narrative Physical exam: GENERAL APPEARANCE: drowsy, but arousable; follows commands, no acute distress VITALS: All vitals were reviewed and the pulse ox is 95% on room air, which is normal according to my interpretation. HEENT: Normocephalic, atraumatic; pupils equal, round, reactive to light; EOMI; mucous membranes pink, moist; oropharynx clear NECK: Supple LUNGS: CTABL; no wheezes, no rales, no rhonchi HEART: Regular rate, regular rhythm; normal S1, S2; no murmurs ABDOMEN: non distended; normal BS; soft, no tenderness, no guarding, no rebound; no masses, no organomegaly, no hernia BACK: no CVA tenderness EXTREMITIES: atraumatic; no edema NEUROLOGIC: drowsy, but arousable; cranial nerves II-XII grossly intact; no focal sensory or motor deficits PSYCHIATRIC: appropriate mood and affect SKIN: warm, dry, normal color; no rashes Course Course Course Narrative: CXR is ordered for determining the etiology of AMS. Quality Measures none Orders Category Date Time Status Credit Verifier NOW Care 02/04/25 22:33 Active EKG (ED ONLY) *Do not use* NOW Care 02/04/25 22:33 Completed In and Out Catheter X1 Care 02/04/25 22:[address] head/brain wo con Stat Exams 02/04/25 22:33 Completed EKG (ED Only) Stat Exams 02/04/25 22:33 Ordered XR chest 1V portable Stat Exams 02/04/25 22:33 Completed ABG [Arterial Blood Gas] Stat Lab 02/04/25 22:43 Completed Alcohol, Blood Medical Stat Lab 02/04/25 22:38 Completed Ammonia Stat Lab 02/04/25 22:38 Completed B-Type Natriuretic Peptide Stat Lab 02/04/25 22:38 Completed Blood Culture (Lab) Stat Lab 02/04/25 23:27 Received CBC Stat Lab 02/04/25 22:38 Completed Comprehensive Metabolic Panel Stat Lab 02/04/25 22:38 Completed Drug Screen,Urine Stat Lab 02/04/25 23:53 Received Lactate (Lactic Acid) Stat Lab 02/04/25 22:38 Completed Lipase Stat Lab 02/04/25 22:38 Completed Magnesium Stat Lab 02/04/25 22:38 Completed Partial Thromboplastin Time Stat Lab 02/04/25 22:38 Received Procalcitonin Stat Lab 02/04/25 22:38 Completed Prothrombin Time with INR Stat Lab 02/04/25 22:38 Received Troponin I Stat Lab 02/04/25 22:38 Completed UA, C/S IF [Urinalysis, C/S if Indicated] Stat Lab 02/04/25 23:53 Received Sodium Chloride 0.9% 1000 ml [Ns] 1,000 ml Med 02/05/25 00:07 Ordered IV 999 mls/hr Vital Signs Vital signs: Vital Signs Temperature 97.5 F 02/04/25 22:35 Pulse Rate 59 L 02/04/25 22:35 Respiratory Rate 16 02/04/25 22:35 Blood Pressure 106/51 L 02/04/25 22:35 Pulse Oximetry (%) 94 L 02/04/25 22:35 Oxygen Delivery Method Room Air 02/04/25 22:35 Altered Mental Status MDM Narrative MDM Narrative:: Scribe Attestation: 02/04/25 - Erin Nguyen am scribing for and in the presence of Dr. Caldwell. Patient data External records reviewed:: [facility] previous records (Per chart review, patient was seen here on 12/12/24 for a fall.) Clinical information provided by:: EMS Social determinants that could affect healthcare access:: none Patient has the following chronic illnesses:: DM, HTN, arthritis How is presenting disease/condition affected by chronic disease/condition?: uneffected by Evaluation data The following diagnostics were reviewed and interpreted by me:: lab results and radiology exam(s) Lab and/or radiology exams considered but not ordered:: none Interpretation Summary: WBC normal, HnH 9.4/27.8, ABG shows a normal pCO2, pO2 69, HCO3 27; Lactic Acid normal, Creatinine 2.0, BUN 58, eGFR 24, Glucose 138, Magnesium normal, Troponin normal, BNP 106, Procalcitonin normal, Blood Alcohol negative. [facility] Report Signed Patient: SONALI GARCIA [facility]. Record#: [id number] Birthdate: 1935 Age/Sex: 89 / F Location: SERX Attending Dr: Ordering Physician: Shaneka Caldwell MD Date of Service: 02/04/25 Procedure(s): CT head/brain wo con Accession Number(s): [id number] cc: Arnie Swenson MD; Shaneka Caldwell MD~ Examination: CT brain head without contrast. 2-D sagittal coronal reconstructions Date and time of exam:February 04, 2025 10:43 PM Comparison December 12, 2024 INDICATIONS: Altered mental status today CTDI: vol (mGy):46.6 DLP: (mGycm):905 Technique: Multiple CT axial sections of the brain have been obtained, 5 mm slice thickness. Contrast has not been administered. 2-D sagittal, coronal reconstructions have been obtained Low dose protocols were performed. One or more of the following dose reduction techniques were used; automated exposure control, adjustment of the mA and/or KV according to patient size, use of iterative reconstruction technique. Findings: No significant ventricular enlargement. 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 No mass effect or midline shift Basal cisterns are not remarkable. Fourth ventricle is midline. Cranial vault intact. Impression: Negative for acute hemorrhage, mass effect or midline shift Advise clinical correlation and follow-up coronary Dictated By: Arnie Swenson MD Signed By: <Electronically signed by Arnie Swenson MD in OV> 02/04/25 2323 [facility] Report Signed Patient: SONALI GARCIA. Record#: [id number] Birthdate: 1935 Age/Sex: 89 / F Location: SERX Attending Dr: Ordering Physician: Shaneka Caldwell MD Date of Service: 02/04/25 Procedure(s): XR chest 1V portable Accession Number(s): [id number] cc: Arnie Swenson MD; Hiral Culp MD; Shaneka Caldwell MD~ Examination: AP chest single view TECHNIQUE: AP portable semiupright chest single view Date and time: February 04, 2025 at 11:27 PM Comparison December 12, 2024 INDICATION: Chest pain. FINDINGS: Normal heart size. No pneumonia or pulmonary edema Old appearing right-sided rib fractures IMPRESSION: No pneumonia or pulmonary edema Dictated By: Arnie Swenson MD Signed By: <Electronically signed by Arnie Swenson MD in OV> 02/04/25 2358 Medications / Prescriptions Medications or Prescriptions considered but not ordered:: none Medication administrations:: Medication Administration History Sodium Chloride (Ns) 1,000 mls @ 999 mls/hr IV .Q1H1M ONE Stop: 02/05/25 01:07 see above Consultations Consultation(s) initiated? (list below): Yes Consultation #1 (Physician, Specialty, Details): Discussed case with the resident physician, attending Dr. Coon from Hospitalist service regarding admission. Discussed patients ED course, exam findings, labs, and radiology results. The Hospitalist agrees to accept the patient for admission. Time: 00:09 Diagnosis Differential diagnosis altered mental status: other (CVA, ACS, syncope, seizure, dehydration) Most likely diagnosis given after review of the tests above:: VIVIANA, dehydration, hypotension Admission Indicated Admission indicated?: indicated Admission Request Was there a request for admission?: Yes Admission Attestation Admission request attestation: Discussed case with [] from Hospitalist service regarding admission. Discussed patients ED course, exam findings, labs, and radiology results. The Hospitalist [agrees,declines] to accept the patient for admission. Disposition Plan Disposition Plan: Admit Critical Care Time Critical Care Time Critical Care Time: Yes Total Critical Care Time (min.): 40 Attestation: The high probability of sudden, clinically significant deterioration in the patient?s condition required the highest level of my preparedness to intervene urgently. The services I provided to this patient were to treat and/or prevent clinically significant deterioration. Services included the following: chart data review, reviewing nursing notes and/or old charts, documentation time, strategic sourcing consultant collaboration regarding findings and treatment options, medication orders and management, direct patient care, vital sign assessments and ordering, interpreting and reviewing diagnostic studies and lab tests. Aggregate critical care time includes only time during which I was engaged in work directly related to the patient?s care, as described above, whether at bedside or elsewhere in the Emergency Department. It did not include time spent performing other reported procedures or the services of residents, students, nurses or physician assistants. Discharge Plan Plan Patient Disposition: Admit Acute Care w/in Hospital Prescriptions/Referrals Prescriptions/Med Rec: No Action Ozempic 1 mg/dose (4 mg/3 mL) pen injector 1 mg subcut QWEEK gabapentin 300 mg capsule 300 mg PO QDAY alprazolam 0.5 mg tablet 0.5 mg PO QDAY atorvastatin 40 mg tablet 40 mg PO QDAY benazepril 40 mg tablet 40 mg PO QDAY hydrocodone-acetaminophen 5-325 mg tablet 1 tab PO Q12H MDD 2 tabs PRN (Reason: pain) Qty: 14 0RF meloxicam 7.5 mg tablet 7.5 mg PO QDAY Qty: 14 0RF cefdinir 300 mg capsule 300 mg PO BID Qty: 14 0RF Referrals: Hiral Goss MD [Primary Care Provider] - In 1 week Problem List Clinical Impression: Hypotension, VIVIANA (acute kidney injury), Dehydration Patient/Caregiver Discharge Instructions Print Language: Tuvaluan Stand Alone Forms: Maryjane Award Info., Patient Portal Info Letter
[2025-02-04 22:33] VITALS: PULSE 51
[2025-02-04 22:35] VITALS: BP 106/51; PULSE 50; PULSE 59; RESP 16; TEMP 36.4; O2SAT 94
[2025-02-04 22:36] VITALS: BP 106/51; PULSE 72; RESP 11; O2SAT 95
[2025-02-04 22:48] LABS: Lactate (Lactic Acid) 1.4 mMol/L (0.4-2.0)
[2025-02-04 22:49] LABS: Base Excess 2 (-3-3); HCO3 27 mEq/L (20-26); Inspired Oxygen, FIO2 21 %; O2 Saturation 94 % (91-98); PCO2 45 mmHg (32.0-48.0); PO2 69 mmHg (83-108); pH, Arterial 7.39 (7.35-7.45)
[2025-02-04 22:51] LABS: Basophils # (Auto) 0.1 Thou/mm3 (0.0-0.2); Basophils % (Auto) 1 % (0-2.5); Eosinophils # (Auto) 0.5 Thou/mm3 (0.0-0.5); Eosinophils % (Auto) 6 % (0-10); Hematocrit 27.8 % (36.0-46.0); Hemoglobin 9.4 g/dL (12.0-16.0); Immature Granulocytes % (Auto) 1 % (0-0); Immature Granulocytes Auto 0.04 Thou/mm3 (0.00-0.00); Lymphocytes % (Auto) 25 % (10-50); Mean Corpuscular HGB Conc 33.8 g/dl (31.0-37.0); Mean Corpuscular Hemoglobin 30.2 pg (25.0-35.0); Mean Corpuscular Volume 89 fL (80-100); Monocytes # (Auto) 0.8 Thou/mm3 (0.0-0.8); Monocytes % (Auto) 9 % (0-12); Neutrophils # (Auto) 4.7 Thou/mm3 (1.8-7.7); Neutrophils % (Auto) 58 % (37-80); Nucleated Red Blood Cell % 0 /100 WBC (0); Platelet Count 224 Thou/mm3 (140-440); RDW Standard Deviation 50.5 fL (36.4-46.3); Red Blood Count 3.11 Miln/mm3 (4.00-5.20); White Blood Count 8.1 Thou/mm3 (3.6-11.0)
[2025-02-04 22:54] LABS: Allen Test Performed/OK; Puncture Site Right Radial
[2025-02-04 23:10] LABS: Ammonia 21 uMol/L (11-32)
[2025-02-04 23:13] VITALS: BP 137/53; PULSE 58; RESP 13; O2SAT 96
[2025-02-04 23:20] LABS: Alanine Aminotransferase 19 U/L (10-49); Albumin, Serum 3.4 gm/dL (3.4-4.8); Albumin/Globulin Ratio 1.6 (1.2-2.2); Alcohol, Blood Medical < 3.0 mg/dL (0-10.0); Alkaline Phosphatase 72 U/L (46-116); Anion Gap 11 (7-16); BUN/Creatinine Ratio 29 Ratio (12-20); Bilirubin,Total 0.4 mg/dL (0.3-1.2); Blood Urea Nitrogen 58 mg/dL (9-23); Calcium 8.5 mg/dL (8.3-10.6); Carbon Dioxide 26.3 mMol/L (20.0-31.0); Chloride 105 mMol/L (98-107); Globulin 2.1 gm/dL (2.3-3.5); Glucose 138 mg/dL (74-106); Lipase 44 U/L (12-53); Magnesium 1.7 mg/dL (1.6-2.6); Osmolality,Calculated 301 (275-295); Potassium 4.3 mMol/L (3.4-5.1); Procalcitonin 0.08 ng/ml (0.0-0.49); Sodium 142 mMol/L (136-145); Total Protein 5.5 gm/dL (5.7-8.2); Troponin I < 0.020 ng/mL (0.0-0.045); eGFR 24 See Note
[2025-02-04 23:25] LABS: B-Type Natriuretic Peptide 106 pg/mL (0-100)
[2025-02-04 23:32] VITALS: BP 137/53; PULSE 53; RESP 20; O2SAT 95
[2025-02-04 23:59] LABS: Collection Type, Urine Catheter
[2025-02-05] VITALS (13 sets, daily range): BP systolic 112–167; BP diastolic 49–74; PULSE 8–63; RESP 12–98; TEMP 36.2–37.1; O2SAT 91–99; BMI 26.3
[2025-02-05 00:16] LABS: Amphetamine/Methamp Scrn,U Negative (Negative); Barbiturate Screen,Urine Negative (Negative); Benzodiazepines Screen,Urine Negative (Negative); Benzoylecgonine Screen, Ur Negative (Negative); Fentanyl Screen,Urine Negative (Negative); Opiate Screen,Urine Negative (Negative); THC Screen,Urine Negative (Negative)
[2025-02-05 00:16] LABS: INR 1.2 (0.9-1.3); Partial Thromboplastin Time 24.5 Seconds (22.0-36.0); Prothrombin Time 12.9 Seconds (9.0-12.2)
[2025-02-05 00:22] LABS: Bilirubin,Urine Negative (Negative); Blood,Urine Negative (Negative); Clarity,Urine Turbid (Clear/Hazy); Color,Urine Yellow (Lt Yel-Yel); Culture Indicated,Urine Not Indicated; Glucose, Urine Trace (Negative); Hyaline Casts,Urine 1 /hpf (0-1); Ketones,Urine Negative (Negative); Leukocyte Esterase,Urine Negative (Negative); Nitrite,Urine Negative (Negative); Protein,Urine Trace (Neg - Trace); RBC,Urine 3 /hpf (0-3); Squamous Epithelial Cell,Urine 9 /hpf (0-5); Urobilinogen,Urine Negative mg/dL (0.0-1.0); WBC,Urine 2 /hpf (0-5)
[2025-02-05] MEDS: SODIUM CHLORIDE 0.9% 1000 ML 1,000 ML 999 ML IV (01:29)
--- NOTE | 2025-02-05 01:34 | PD.RESHP ---
Documentation for date of: 02/05/25 [facility] History of Present Illness Chief complaint: Acute encephalopathy History of present illness: History is limited as patient is altered mental status at this time. 89-year-old female with past medical history of hypertension, diabetes who presented to the ED due to altered mental status. Apparently patient went numb family waited about an hour, and they have noticed no improvement called EMS. On EMS arrival patient was noted to be hypotensive and hypoxic and was started on IV fluids and on nonrebreather mask in route to the ER. Patient is very lethargic and history was very limited. Currently on my examination patient has a GCS score of 12. In the ER patient had workup done including head CT chest x-ray, U-Tox, UA all of which were negative. Patient will be admitted for acute encephalopathy. ED course: ED vitals: BP 106/51, HR 59, O2 sat 94% on room air ED labs: Normocytic anemia, ABG within normal limits, BUN 58, creatinine 2.0, glucose 138, BNP 106, UA negative for UTI, U-Tox negative for drug use, head CT negative, chest x-ray negative In the ED patient received 1 L NS bolus PMHx: As above SX Hx: Unknown Social Hx: Unknown FH X: Unknown Review of Systems Review of Systems ROS Unobtainable: unobtainable due to mental status Exam Vital Signs Temp Pulse Resp BP Pulse Ox O2 Del Method 97.5 F 53 L 20 137/53 H 95 Room Air 02/04/25 22:35 02/04/25 23:32 02/04/25 23:32 02/04/25 23:32 02/04/25 23:32 02/04/25 23:32 Narrative Exam Physical Exam GENERAL: NAD, lethargic and drowsy GCS of 12 HEENT: Dry mucosa. Eyes open, symmetrical, & clear CARDIO: Heart RRR, no obvious murmurs PULM: No noted coughing/dyspnea CTA B/L, no R/W/R GI: Abdomen soft, nondistended, no pain on palpation. BSx4 SKIN/MSK/EXT: No wounds/rashes/edema/amputations, no pain on palpation. Pedal pulses present B/L Results: Labs 02/05/25 04:20 02/05/25 04:20 Labs: Short CBC 02/04/25 Range/Units 22:38 WBC 8.1 (3.6-11.0) Thou/mm3 Hgb 9.4 L (12.0-16.0) g/dL Hct 27.8 L (36.0-46.0) % Plt Count 224 (140-440) Thou/mm3 BMP 02/04/25 22:38 Sodium 142 Potassium 4.3 Chloride 105 Carbon Dioxide 26.3 BUN 58 H Creatinine 2.0 H Glucose 138 H Calcium 8.5 Cardiac Enzymes 02/04/25 Range/Units 22:38 Troponin I < 0.020 (0.0-0.045) ng/mL Liver Function 02/04/25 Range/Units 22:38 Total Bilirubin 0.4 (0.3-1.2) mg/dL ALT 19 (10-49) U/L Alkaline Phosphatase 72 (46-116) U/L Albumin 3.4 (3.4-4.8) gm/dL Urine 02/04/25 Range/Units 23:53 Urine Color Yellow (Lt Yel-Yel) Urine Clarity Turbid A (Clear/Hazy) Urine pH 6.0 (5.0-7.0) Ur Specific [place] 1.020 (1.001-1.035) Urine Protein Trace (Neg - Trace) Urine Glucose (UA) Trace (Negative) ABG Interpretation ABG results: 02/04/25 22:43 ABG pH 7.39 ABG pCO2 45 ABG pO2 69 L ABG HCO3 27 H ABG O2 Saturation 94 ABG Base Excess 2 Quality Measures Quality Measures none Advance care planning discussed with:: patient Medications Home Medications and Allergies Home Medications ?Medication ?Instructions ?Recorded ?Confirmed ?Type alprazolam 0.5 mg tablet 0.5 mg PO QDAY 06/11/24 02/05/25 History atorvastatin 40 mg tablet 40 mg PO QDAY 06/11/24 02/05/25 History benazepril 40 mg tablet 40 mg PO QDAY 06/11/24 02/05/25 History gabapentin 300 mg capsule 300 mg PO QDAY 06/11/24 02/05/25 History semaglutide 1 mg/dose (4 mg/3 mL) 1 mg subcut QWEEK 06/11/24 02/05/25 History subcutaneous pen injector (Ozempic) amlodipine 5 mg tablet 5 mg PO HS 02/05/25 02/05/25 History donepezil 10 mg tablet 10 mg PO HS 02/05/25 02/05/25 History esomeprazole magnesium 40 mg 40 mg PO QDAY 02/05/25 02/05/25 History capsule,delayed release fenofibric acid (choline) 135 mg 135 mg PO QDAY 02/05/25 02/05/25 History capsule,delayed release hydrochlorothiazide 25 mg tablet 25 mg PO QDAY 02/05/25 02/05/25 History montelukast 10 mg tablet 10 mg PO DAILY 02/05/25 02/05/25 History quetiapine 150 mg tablet,extended 150 mg PO BID 02/05/25 02/05/25 History release 24 hr Allergies Allergy/AdvReac Type Severity Reaction Status Date / Time latex Allergy Severe ITCHING,WEL Verified 12/12/24 18:39 TS Penicillins Allergy Severe ANAPHYLATIC Verified 12/12/24 18:39 Visit Medications Acetaminophen (Acetaminophen 325 Mg Tablet) 650 mg PO Q6H PRN PRN Reason: Fever >99.5 Stop: 03/07/25 01:24 Acetaminophen (Acetaminophen 325 Mg Tablet) 1,000 mg PO Q6H PRN PRN Reason: PAIN SCALE 1-3 (mild Stop: 03/07/25 01:24 Enoxaparin Sodium (Enoxaparin Sod Inj 40 Mg/0.4 Ml Syringe) 40 mg SC QDAY [facility] Stop: 02/19/25 08:59 Sodium Chloride (Ns) 1,000 mls @ 75 mls/hr IV .[id number] ANSHUL Stop: 02/05/25 14:49 Sodium Chloride (Ns) 500 mls @ 999 mls/hr IV .Q31M ONE Stop: 02/05/25 02:00 Ondansetron HCl (Ondansetron Inj 2 Mg/Ml Inj 2 Ml) 4 mg IVP Q6H PRN; Protocol PRN Reason: NAUSEA OR VOMITING Stop: 03/07/25 01:24 Pantoprazole Sodium (Pantoprazole Inj 40 Mg Vial) 40 mg IVP QDAY ANSHUL Stop: 03/07/25 08:59 Sennosides (Senna Tablet) 1 tab PO QDAY ANSHUL; Protocol Stop: 03/07/25 08:59 Discontinued Medications Sodium Chloride (Ns) 1,000 mls @ 999 mls/hr IV .Q1H1M ONE Stop: 02/05/25 01:07 Last Admin: 02/05/25 01:29 Dose: 999 mls/hr Assessment & Plan Plan 89-year-old female with past medical history of diabetes, hypertension who presented to the ED due to altered mental status. #Acute encephalopathy #Acute Kidney injury Likely prerenal azotemia secondary to dehydration Patient currently with GCS of 12 however unable to participate in history taking due to mental status. Head CT, chest x-ray, U-Tox, UA all negative, no leukocytosis no fevers noted low suspicion for infectious process at this time In the ED patient received 1 L NS bolus BUN 58, creatinine 2.0, baseline creatinine seems to be around 1.0?1.2 ? Follow-up blood cultures ? on IVF ? Avoid nephrotoxins ? Renally dose medications ? N.p.o. till swallow eval passed ? Speech therapy ordered ? Bladder scan ordered #Diabetes mellitus type 2 ?Follow-up A1c ? SSI ? Hypoglycemia protocol in place #Hypertension Currently normotensive will resume antihypertensives as tolerated ?Med rec ordered Health Maintenance: Disposition: Telemetry, IV fluids Fluids: NS Feeding: N.p.o. till swallow screen Thrombo prophylaxis: Lovenox Gastric Ulcer prophylaxis: Pantoprazole CODE STATUS: Full code Case discussed with my attending Dr. Jaymie Thorpe MD PGY-1 Disclaimer: Despite multiple revisions, due to the dictation software being used, the document bellow may not be free of grammatical errors including phonetic/typographic errors. However, this does not deter from our commitment to providing health care in the patient's best interest in mind. Attending Provider Attestation/Addendum I reviewed labs, imaging, EKG, home medications and prior available records. Face to face evaluation was performed by me. I have personally examined the patient and discussed assessment and plan with the IM team. I reviewed the resident note and agree with the plan with exceptions as below. Acute encephalopathy, possibly due to dehydration VIVIANA on CKD Acute hypotension, possibly due to hypovolemia from dehydration Possible baseline cognitive impairment/dementia Patient is severely dehydrated on exam Start IV fluids Ordered CT head: Negative for acute changes Hold antihypertensive treatment
[2025-02-05] MEDS: SODIUM CHLORIDE 0.9% 1000 ML 1,000 ML 75 ML IV (01:57)
[2025-02-05] MEDS: SODIUM CHLORIDE 0.9% 500 ML 500 ML 999 ML IV (02:01)
[2025-02-05 05:01] LABS: Basophils % (Auto) 1 % (0-2.5); Eosinophils # (Auto) 0.3 Thou/mm3 (0.0-0.5); Eosinophils % (Auto) 5 % (0-10); Hematocrit 24.9 % (36.0-46.0); Immature Granulocytes % (Auto) 0 % (0-0); Immature Granulocytes Auto 0.03 Thou/mm3 (0.00-0.00); Lymphocytes # (Auto) 1.3 Thou/mm3 (1.0-4.8); Lymphocytes % (Auto) 19 % (10-50); Mean Corpuscular HGB Conc 33.7 g/dl (31.0-37.0); Mean Corpuscular Hemoglobin 30.7 pg (25.0-35.0); Mean Corpuscular Volume 91 fL (80-100); Monocytes # (Auto) 0.5 Thou/mm3 (0.0-0.8); Monocytes % (Auto) 7 % (0-12); Neutrophils # (Auto) 4.9 Thou/mm3 (1.8-7.7); Neutrophils % (Auto) 69 % (37-80); Nucleated Red Blood Cell % 0 /100 WBC (0); Platelet Count 200 Thou/mm3 (140-440); RDW Standard Deviation 52.2 fL (36.4-46.3); Red Blood Count 2.74 Miln/mm3 (4.00-5.20); White Blood Count 7.1 Thou/mm3 (3.6-11.0)
[2025-02-05 05:02] LABS: Hemoglobin 8.4 g/dL (12.0-16.0)
[2025-02-05 05:22] LABS: Alanine Aminotransferase 16 U/L (10-49); Albumin/Globulin Ratio 1.6 (1.2-2.2); Alkaline Phosphatase 67 U/L (46-116); Anion Gap 11 (7-16); BUN/Creatinine Ratio 29 Ratio (12-20); Bilirubin,Total 0.4 mg/dL (0.3-1.2); Blood Urea Nitrogen 47 mg/dL (9-23); Calcium (Corrected) 8.8 mg/dL (8.5-10.1); Chloride 109 mMol/L (98-107); Creatinine (Component) 1.6 mg/dL (0.6-1.3); Globulin 1.9 gm/dL (2.3-3.5); Glucose 127 mg/dL (74-106); Magnesium 1.6 mg/dL (1.6-2.6); Osmolality,Calculated 306 (275-295); Potassium 3.8 mMol/L (3.4-5.1); Sodium 147 mMol/L (136-145); Thyroid Stimulating Hormone 1.41 uIU/mL (0.55-4.78); Total Protein 4.9 gm/dL (5.7-8.2); eGFR 31 See Note
--- NOTE | 2025-02-05 07:10 | PC.NURSE ---
BEDSIDE SBAR RECEIVED AT THIS TIME; PER REPORT, PT IS HERE FOR AMS; INITIALLY, PT'S GCS WAS AN 11 BUT NOW HAS GONE UP TO A GCS OF 14. SHE WAS HYPOXIC AND HYPOTENSIVE BUT PT'S VS STABLE AT THIS TIME. PMH OF HYPERTENSION, DM, AND DEMENTIA. PT HAS 18G OF LEFT AC AND 20G TO L HAND. SHE WAS A WOUND TO HER COCCYX, STAGE 2 PRESSURE INJURY.
[2025-02-05] MEDS: ENOXAPARIN SOD INJ 40 MG/0.4 ML SYRINGE SC (08:23)
[2025-02-05] MEDS: PANTOPRAZOLE INJ 40 MG VIAL IVP (08:23)
[2025-02-05] MEDS: SENNA TABLET 1 TAB PO (08:27)
--- NOTE | 2025-02-05 10:00 | PC.NURSE ---
SPOKE TO DR. ROBERTS AND MADE AWARE PT PASSED NURSE SWALLOW SCREEN; RN SEEKING CLARIFICATION IF PT ABLE TO HAVE DIET ORDER AT THIS TIME. PER DR. ROBERTS, WILL ROUND ON PT SOON AND MAKE A DECISION AFTER TALKING TO PT.
--- NOTE | 2025-02-05 10:05 | PC.CC ---
Patient is a 89 year-old female who presents to the hospital for AMS. ASW, Mayte made face to face contact with patient and patient's [id number], Priscilla Dudley . Patient's [id number] is listed as person to notify on patient's demographics. ASW introduced self, role, and reason for visit. Patient was asleep at the initial of the assessment; however woke up and was alert but did not appeared to be oriented. ASW disclosed limits of confidentiality with daughter in law. Priscilla reports patient has a POA Don Lee whom is patient's granddaughter. The patient currently lives with Priscilla and her , Bobby who is patient's son. ' Per Priscilla, she is patient's primary care provider and patient is bed ridden. However, when the patient does ambulate they use a wheelchair. Patient is max assist with all ADLs. Patient requires 2-3L of oxygen but can need up to 4L. Patient is receiving hospice services through [facility]. The family has set up for the patient to be placed at an assisted living facility formerly [facility] beginning February 11, 2025. Patient's primary provider is Hiral Goss and for prescription medications [facility]. services manager to follow up with any discharge needs. The family plans to take the patient home upon discharge until they place her at formerly [facility] next Monday.
--- NOTE | 2025-02-05 10:39 | PC.SS ---
Rounding note: VIVIANA being monitored. May discharge home tomorrow 02/06/25, if medically clear.
--- NOTE | 2025-02-05 12:17 | ESPR_ITS ---
<Statement entered by Ibis Thompson MD - 02/05/25 12:51> Patient was seen and examined at bedside. No acute overnight events. Vitals are stable, maps above 65 after receiving IV resuscitation. Hemoglobin dropped from 9.4-8.4, most likely hemodilution as patient received multiple IVF's, will continue close monitor, no signs or symptoms of bleeding. Chemistry panel revealed hyperchloremic hypernatremia most likely in the setting of dehydration, BUN is 47, BUN/creatinine ratio 29 suggesting of most likely prerenal VIVIANA, as creatinine is 1.6, continue IV hydration will follow-up with renal panel. Patient appears to be bradycardic, we will hold off on any donepezil for now we will continue close monitor vitals. Pending speech evaluation, plan is to start feeding. Continue current management, will follow-up with the PT I personally saw and examined the patient and discussed the assessment and plan with the entire medicine team, including my attending , Ibis Thompson M.D. PGY-2 Disclaimer: Despite multiple revisions, due to the dictation software being used, the document bellow may not be free of grammatical errors including phonetic/typographic errors. However, this does not deter from our commitment to providing health care in the patient's best interest in mind. Documentation for date of: 02/05/25 Subjective Subjective Interval history: Overnight admission. Seen and examined in the ED and patient was alert and oriented to self, birthday, and place but not year. Per [id number], patient was appearing to be close to or at her baseline. Will monitor mental status and anticipate discharge within the next 24-48 hours. Hemoglobin dropped from 9.4 to 8.4, but patient did receive IVF. Chem panel showed improvement in VIVIANA, decrease in BUN. Otherwise, vital signs show bradycardia (50s), patient saturating and breathing well on room air, and hemodynamically stable. Exam Vital Signs Temp Pulse Resp BP Pulse Ox O2 Del Method 98.8 F 50 L 13 128/57 L 96 Room Air 02/05/25 10:04 02/05/25 10:02/05/25 10:02/05/25 10:04 02/05/25 10:02/05/25 10:04 Narrative Exam General: alert, oriented to self/birthday/place but not year, no acute distress, able to speak full sentences HEENT: NC/AT, mucous membranes moist, bilateral sclera anicteric Cardiovascular: regular rate and rhythm, S1/S2 present, no murmurs appreciated Pulmonary: clear to auscultation bilaterally, no rales/rhonchi/wheezes Abdominal: soft, non-tender, non-distended, no rebound/guarding, normal bowel sounds present Musculoskeletal: normal ROM, no peripheral edema Skin: warm and dry, intact, no rashes Neuro: CN II-XII intact, no focal deficits Objective Labs 02/05/25 04:20 02/05/25 04:20 Labs: Laboratory Results - last 24 hr 02/04/25 02/04/25 02/04/25 22:38 22:43 23:53 WBC 8.1 RBC 3.11 L Hgb 9.4 L Hct 27.8 L MCV 89 MCH 30.2 MCHC 33.8 RDW Std Deviation 50.5 H Plt Count 224 Neut % (Auto) 58 Lymph % (Auto) 25 Hartley % (Auto) 9 Eos % (Auto) 6 Baso % (Auto) 1 Neut # (Auto) 4.7 Lymph # (Auto) 2.0 Hartley # (Auto) 0.8 Eos # (Auto) 0.5 Baso # (Auto) 0.1 Immature Gran # (Auto) 0.04 H Absolute Nucleated RBC 0.00 Immature Gran % 1 H Nucleated RBC % 0 PT 12.9 H INR 1.2 APTT 24.5 Puncture Site Right Radial ABG pH 7.39 ABG pCO2 45 ABG pO2 69 L ABG HCO3 27 H ABG O2 Saturation 94 ABG Base Excess 2 FiO2 21 Sodium 142 Potassium 4.3 Chloride 105 Carbon Dioxide 26.3 Anion Gap 11 BUN 58 H Creatinine 2.0 H Estim Creat Clear Calc Not Performed. eGFR 24 L BUN/Creatinine Ratio 29 H Glucose 138 H Calculated Osmolality 301 H Lactic Acid 1.4 Calcium 8.5 Corrected Calcium 9.0 Magnesium 1.7 Total Bilirubin 0.4 ALT 19 Alkaline Phosphatase 72 Ammonia 21 Troponin I < 0.020 B-Natriuretic Peptide 106 H Total Protein 5.5 L Albumin 3.4 Globulin 2.1 L Albumin/Globulin Ratio 1.6 Lipase 44 Procalcitonin 0.08 TSH Ur Collection Type Catheter Urine Color Yellow Urine Clarity Turbid A Urine pH 6.0 Ur Specific [place] 1.020 Urine Protein Trace Urine Glucose (UA) Trace Urine Ketones Negative Urine Blood Negative Urine Nitrite Negative Urine Bilirubin Negative Urine Urobilinogen (Auto) Negative Ur Leukocyte Esterase Negative Urine RBC 3 Urine WBC 2 Ur Squamous Epith Cells 9 H Urine Bacteria None Hyaline Casts 1 Ur Culture Indicated? Not Indicated Urine Opiates Screen Negative Urine Fentanyl Screen Negative Ur Barbiturates Screen Negative U Amphetamin/Meth Scrn Negative U Benzodiazepines Scrn Negative U Cocaine Metab Screen Negative U Marijuana (THC) Screen Negative Ethyl Alcohol < 3.0 02/05/25 04:20 WBC 7.1 RBC 2.74 L Hgb 8.4 L Hct 24.9 L MCV 91 MCH 30.7 MCHC 33.7 RDW Std Deviation 52.2 H Plt Count 200 Neut % (Auto) 69 Lymph % (Auto) 19 Hartley % (Auto) 7 Eos % (Auto) 5 Baso % (Auto) 1 Neut # (Auto) 4.9 Lymph # (Auto) 1.3 Hartley # (Auto) 0.5 Eos # (Auto) 0.3 Baso # (Auto) 0.0 Immature Gran # (Auto) 0.03 H Absolute Nucleated RBC 0.00 Immature Gran % 0 Nucleated RBC % 0 PT INR APTT Puncture Site ABG pH ABG pCO2 ABG pO2 ABG HCO3 ABG O2 Saturation ABG Base Excess FiO2 Sodium 147 H Potassium 3.8 D Chloride 109 H Carbon Dioxide 27.0 Anion Gap 11 BUN 47 H Creatinine 1.6 H Estim Creat Clear Calc Not Performed. eGFR 31 L BUN/Creatinine Ratio 29 H Glucose 127 H Calculated Osmolality 306 H Lactic Acid Calcium 8.0 L Corrected Calcium 8.8 Magnesium 1.6 Total Bilirubin 0.4 ALT 16 Alkaline Phosphatase 67 Ammonia Troponin I B-Natriuretic Peptide Total Protein 4.9 L Albumin 3.0 L Globulin 1.9 L Albumin/Globulin Ratio 1.6 Lipase Procalcitonin TSH 1.41 Ur Collection Type Urine Color Urine Clarity Urine pH Ur Specific [place] Urine Protein Urine Glucose (UA) Urine Ketones Urine Blood Urine Nitrite Urine Bilirubin Urine Urobilinogen (Auto) Ur Leukocyte Esterase Urine RBC Urine WBC Ur Squamous Epith Cells Urine Bacteria Hyaline Casts Ur Culture Indicated? Urine Opiates Screen Urine Fentanyl Screen Ur Barbiturates Screen U Amphetamin/Meth Scrn U Benzodiazepines Scrn U Cocaine Metab Screen U Marijuana (THC) Screen Ethyl Alcohol ABG Interpretation ABG results: 02/04/25 22:43 ABG pH 7.39 ABG pCO2 45 ABG pO2 69 L ABG HCO3 27 H ABG O2 Saturation 94 ABG Base Excess 2 Quality Measures Quality Measures none Advance care planning discussed with:: patient Assessment & Plan Assessment Current Active Medications: Generic Name Dose Route Start Last Admin Trade Name Freq PRN Reason Stop Dose Admin Acetaminophen 650 mg 02/05/25 01:25 Acetaminophen 325 Mg Tablet PO 03/07/25 01:24 Q6H PRN Fever >99.5 Acetaminophen 1,000 mg 02/05/25 01:25 Acetaminophen 325 Mg Tablet PO 03/07/25 01:24 Q6H PRN PAIN SCALE 1-3 (mild Enoxaparin Sodium 40 mg 02/05/25 09:00 02/05/25 08:23 Enoxaparin Sod Inj 40 Mg/0.4 Ml Syringe SC 02/19/25 08:59 40 mg QDAY ANSHUL Administration Sodium Chloride 1,000 mls @ 75 mls/hr 02/05/25 01:30 02/05/25 11:00 Ns IV 02/05/25 14:49 75 mls/hr .[id number] ANSHUL Infusion Ondansetron HCl 4 mg 02/05/25 01:25 Ondansetron Inj 2 Mg/Ml Inj 2 Ml IVP 03/07/25 01:24 Q6H PRN NAUSEA OR VOMITING Protocol Pantoprazole Sodium 40 mg 02/05/25 09:00 02/05/25 08:23 Pantoprazole Inj 40 Mg Vial IVP 03/07/25 08:59 40 mg QDAY ANSHUL Administration Sennosides 1 tab 02/05/25 09:00 02/05/25 08:27 Senna Tablet PO 03/07/25 08:59 1 tab QDAY ANSHUL Administration Protocol Plan Julissa Vidal (Sue) is an 89-year-old female with a past medical history of type 2 diabetes mellitus and hypertension who is admitted for acute encephalopathy. #Acute encephalopathy Likely prerenal azotemia secondary to dehydration vs hyperuremia vs polypharmacy. CT head, CXR, U-Tox, UA all negative, no leukocytosis, no fevers noted so low suspicion for infectious process at this time. On admission, BUN 58, creatinine 2.0 (baseline creatinine ~1.0?1.2). ? Follow-up blood cultures ? N.p.o. till swallow eval passed ? Speech therapy ordered ? Bladder scan ordered #Acute kidney injury ? Maintenance NS at 75 cc/hr ? Avoid nephrotoxins ? Renally dose medications #Type 2 diabetes mellitus ? Follow-up A1c ? SSI ? Hypoglycemia protocol in place #Hypertension ? Currently normotensive will resume antihypertensives as tolerated Health Maintenance: Disposition: Telemetry, IV fluids Fluids: NS Feeding: N.p.o. till swallow screen Thrombo prophylaxis: Lovenox Gastric Ulcer prophylaxis: Pantoprazole CODE STATUS: Full code ----- Plan discussed with attending physician Dr. Taylor Guerra MD PGY-1 Internal Medicine Attending Provider Attestation/Addendum I have examined the patient, reviewed labs and imaging findings, discussed the case with the resident(s), and reviewed entered orders. I agree with the plan of care as outlined in this note, with these additional summaries/recommendations: Patient seen at bedside. Her acute encephalopathy appears to be improving/resolving. She was able to state her name and year although was unable to recall which city she is in. Most likely cause for acute encephalopathy is secondary to dehydration and uremia. On admission creatinine 2.0 and BUN 58. Most likely secondary to prerenal azotemia from dehydration. Patient receiving IV maintenance fluids and creatinine improved to 6.1 today. Patient's hypotension has resolved and continue to monitor hemodynamics closely. Continue insulin sliding scale for diabetes mellitus type 2 with Accu-Cheks. Target blood sugar of 140-180 while hospitalized. We will reinstitute antihypertensives as needed. Patient has sinus bradycardia which appears asymptomatic and we will monitor for any syncopal episodes. Possibly related to donepezil for patient's underlying dementia. If worsens we will consult cardiology and hold donepezil. Pending physical therapy evaluation. Patient updated on the plan and in agreement. All questions answered to satisfaction. Please see residents note for additional details and management. Dr. Taylor MD
--- NOTE | 2025-02-05 18:00 | PC.NURSE ---
SPOKE TO PATIENTS DAUGHTER CARO OVER THE PHONE, SHE ASKED IF WE HAD PATIENT'S ID CARE, AND MEDICAL CARD THAT WAS SEND WITH HER WITH THE AMBULANCE. CHECKED PATIENTS BELONGINGS, DID NOT FIND THE CARDS SHE ASKED ABOUT. CALLED ER TALKED TO HANNAH AND BECKI, DARLENE FROM REGISTRATION STATED IT LOOKED LIKE HER CARDS WERE SCANNED IN THE SYSTEM, WHEN ASKED ABOUT WHERE THEY ARE LOCATED, SHE ASKED TO REACH OUT [facility]. CALLED [facility] SPOKE TO [place] TO LOOK IN THE SAFE IN THE ER. [place] CALLED ME BACK AND SHE STATED SHE DID NOT FIND THEM.
[2025-02-05] MEDS: POTASSIUM CHLORIDE 20 mEq TABCR PO (18:49)
[2025-02-05] MEDS: Magnesium Sulfate 4 GM Ivpb 4 GM/50 ML BAG IV (18:49)
[2025-02-05] MEDS: ALPRazoLAM 0.25 MG TABLET 0.5 MG PO (21:12)
[2025-02-05] MEDS: BALSAM PERU/CASTOR OIL (Venelex) 60 GM TUBE TOP (21:13)
[2025-02-05] MEDS: amLODIPine BESYLATE 5 MG TABLET PO (21:13)
[2025-02-05] MEDS: HALOPERIDOL LACT INJ 5 MG/ML VIAL 2.5 MG IV ×2 (23:17)
[2025-02-06] VITALS (8 sets, daily range): BP systolic 142–161; BP diastolic 53–81; PULSE 47–88; RESP 12–96; TEMP 35.9–36.9; O2SAT 92–100; BMI 26.9
[2025-02-06 07:13] LABS: Basophils # (Auto) 0.1 Thou/mm3 (0.0-0.2); Basophils % (Auto) 1 % (0-2.5); Eosinophils # (Auto) 0.6 Thou/mm3 (0.0-0.5); Eosinophils % (Auto) 8 % (0-10); Hematocrit 30.4 % (36.0-46.0); Hemoglobin 10.2 g/dL (12.0-16.0); Immature Granulocytes % (Auto) 0 % (0-0); Immature Granulocytes Auto 0.03 Thou/mm3 (0.00-0.00); Lymphocytes # (Auto) 1.8 Thou/mm3 (1.0-4.8); Lymphocytes % (Auto) 25 % (10-50); Mean Corpuscular HGB Conc 33.6 g/dl (31.0-37.0); Mean Corpuscular Hemoglobin 30.3 pg (25.0-35.0); Mean Corpuscular Volume 90 fL (80-100); Monocytes # (Auto) 0.7 Thou/mm3 (0.0-0.8); Monocytes % (Auto) 9 % (0-12); Neutrophils # (Auto) 4.1 Thou/mm3 (1.8-7.7); Neutrophils % (Auto) 57 % (37-80); Nucleated Red Blood Cell % 0 /100 WBC (0); Platelet Count 219 Thou/mm3 (140-440); RDW Standard Deviation 51.5 fL (36.4-46.3); Red Blood Count 3.37 Miln/mm3 (4.00-5.20); White Blood Count 7.2 Thou/mm3 (3.6-11.0)
[2025-02-06 07:35] LABS: Alanine Aminotransferase 18 U/L (10-49); Albumin, Serum 3.6 gm/dL (3.4-4.8); Albumin/Globulin Ratio 1.6 (1.2-2.2); Alkaline Phosphatase 81 U/L (46-116); Anion Gap 8 (7-16); BUN/Creatinine Ratio 23 Ratio (12-20); Bilirubin,Total 0.7 mg/dL (0.3-1.2); Blood Urea Nitrogen 27 mg/dL (9-23); Calcium 8.7 mg/dL (8.3-10.6); Chloride 110 mMol/L (98-107); Creatinine (Component) 1.2 mg/dL (0.6-1.3); Estimated Creatinine Clearance 27.3 mL/min (>60); Globulin 2.3 gm/dL (2.3-3.5); Glucose 92 mg/dL (74-106); Magnesium 2.6 mg/dL (1.6-2.6); Osmolality,Calculated 297 (275-295); Potassium 4.3 mMol/L (3.4-5.1); Sodium 147 mMol/L (136-145); Total Protein 5.9 gm/dL (5.7-8.2); eGFR 44 See Note
[2025-02-06] MEDS: ENOXAPARIN SOD INJ 40 MG/0.4 ML SYRINGE SC (09:11)
[2025-02-06] MEDS: BALSAM PERU/CASTOR OIL (Venelex) 60 GM TUBE TOP ×2 (09:11→20:24)
[2025-02-06] MEDS: PANTOPRAZOLE INJ 40 MG VIAL IVP (09:14)
--- NOTE | 2025-02-06 10:32 | ESPR_ITS ---
<Statement entered by Ibis Thompson MD - 02/06/25 16:08> Patient was seen and examined at bedside. Overnight patient was agitated, x 2 Haldol was given to calm down after medical restraints. Today upon our evaluation patient was alert and oriented x 2 only self and birthday, however not on place. He was saturating well in room air, afebrile. Labs revealed improvement, VIVIANA has resolved, however there is a mild hypernatremia which will be corrected with D5W. PT is on board, pending final recommendations about disposition. Apparently per chart review patient was on home hospice. Anticipate discharge in the next 24 hours. I personally saw and examined the patient and discussed the assessment and plan with the entire medicine team, including my attending Ibis Fair M.D. PGY-2 Disclaimer: Despite multiple revisions, due to the dictation software being used, the document bellow may not be free of grammatical errors including phonetic/typographic errors. However, this does not deter from our commitment to providing health care in the patient's best interest in mind. I personally saw and examined the patient and discussed the assessment and plan with the entire medicine team, including my attending Ibis Cabrera M.D. PGY-2 Disclaimer: Despite multiple revisions, due to the dictation software being used, the document bellow may not be free of grammatical errors including phonetic/typographic errors. However, this does not deter from our commitment to providing health care in the patient's best interest in mind. Documentation for date of: 02/06/25 Subjective Subjective Interval history: Overnight patient became agitated and was pulling on her lines and was placed on restraints and given haloperidol 2.5 mg x 2. Upon evaluation in the morning, patient was alert but only oriented to self and birthdate where she was alert to place prior. Vital signs are stable, afebrile and on room air. Labs are largely unremarkable with improvement in renal function, phosphorus repleted, and sodium mildly elevated 147 for which patient was given 500 cc of D5W. Otherwise, Xanax and quetiapine were held given possibility of polypharmacy that may be contributing to patient's presentation. Exam Vital Signs Temp Pulse Resp BP Pulse Ox O2 Del Method 96.6 F L 49 L 12 158/60 H 100 Room Air 02/06/25 08:00 02/06/25 08:00 02/06/25 08:00 02/06/25 08:00 02/06/25 08:00 02/06/25 08:00 Narrative Exam General: alert, oriented to self/birthday/place but not year or place, no acute distress, bilateral soft restraints HEENT: NC/AT, mucous membranes moist, bilateral sclera anicteric Cardiovascular: regular rate and rhythm, S1/S2 present, no murmurs appreciated Pulmonary: clear to auscultation bilaterally, no rales/rhonchi/wheezes Abdominal: soft, non-tender, non-distended, no rebound/guarding, normal bowel sounds present Musculoskeletal: normal ROM, no peripheral edema Skin: warm and dry, intact, no rashes Neuro: CN II-XII intact, no focal deficits Objective Labs 02/07/25 04:34 02/07/25 04:34 Labs: Laboratory Results - last 24 hr 02/06/25 07:00 WBC 7.2 RBC 3.37 L Hgb 10.2 L D Hct 30.4 L MCV 90 MCH 30.3 MCHC 33.6 RDW Std Deviation 51.5 H Plt Count 219 Neut % (Auto) 57 Lymph % (Auto) 25 [place] % (Auto) 9 Eos % (Auto) 8 Baso % (Auto) 1 Neut # (Auto) 4.1 Lymph # (Auto) 1.8 [place] # (Auto) 0.7 Eos # (Auto) 0.6 H Baso # (Auto) 0.1 Immature Gran # (Auto) 0.03 H Absolute Nucleated RBC 0.00 Immature Gran % 0 Nucleated RBC % 0 Sodium 147 H Potassium 4.3 D Chloride 110 H Carbon Dioxide 29.0 Anion Gap 8 BUN 27 H Creatinine 1.2 Estim Creat Clear Calc 27.3 L eGFR 44 L BUN/Creatinine Ratio 23 H Glucose 92 Calculated Osmolality 297 H Calcium 8.7 Corrected Calcium 9.0 Phosphorus 2.0 L Magnesium 2.6 Total Bilirubin 0.7 ALT 18 Alkaline Phosphatase 81 D Total Protein 5.9 Albumin 3.6 D Globulin 2.3 Albumin/Globulin Ratio 1.6 ABG Interpretation ABG results: 02/04/25 22:43 ABG pH 7.39 ABG pCO2 45 ABG pO2 69 L ABG HCO3 27 H ABG O2 Saturation 94 ABG Base Excess 2 Quality Measures Quality Measures none Advance care planning discussed with:: patient Assessment & Plan Assessment Current Active Medications: Generic Name Dose Route Start Last Admin Trade Name Nikki PRN Reason Stop Dose Admin Acetaminophen 650 mg 02/05/25 01:25 Acetaminophen 325 Mg Tablet PO 03/07/25 01:24 Q6H PRN Fever >99.5 Acetaminophen 1,000 mg 02/05/25 01:25 Acetaminophen 325 Mg Tablet PO 03/07/25 01:24 Q6H PRN PAIN SCALE 1-3 (mild Alprazolam 0.5 mg 02/05/25 20:30 02/06/25 09:30 Alprazolam 0.25 Mg Tablet PO 02/10/25 20:29 Not Given QDAY ANSHUL Amlodipine Besylate 5 mg 02/05/25 20:10 02/05/25 21:14 Amlodipine Besylate 5 Mg Tablet PO 03/07/25 20:09 Not Given HS ANSHUL Atorvastatin Calcium 40 mg 02/06/25 09:00 02/06/25 09:30 Atorvastatin Calcium 20 Mg Tablet PO 03/08/25 08:59 Not Given QDAY ANSHUL Balsam Kamuela/[place] Oil 0 gm 02/05/25 21:00 02/06/25 09:11 Balsam Scott/[place] Oil (Venelex) 60 Gm Tube TOP 03/07/25 20:59 1 applicatio BID ANSHUL Administration Donepezil HCl 10 mg 02/05/25 21:00 02/05/25 21:14 Donepezil Hcl 5 Mg Tablet PO 03/07/25 20:59 Not Given HS ANSHUL Enoxaparin Sodium 40 mg 02/05/25 09:00 02/06/25 09:11 Enoxaparin Sod Inj 40 Mg/0.4 Ml Syringe SC 02/19/25 08:59 40 mg QDAY ANSHUL Administration Hydrochlorothiazide 25 mg 02/06/25 09:00 02/06/25 09:31 Hydrochlorothiazide 12.5 Mg Capsule PO 03/08/25 08:59 Not Given QDAY ANSHUL Dextrose 500 mls @ 75 mls/hr 02/06/25 10:30 D5w IV 03/08/25 10:29 .[id number] ANSHUL Lisinopril 40 mg 02/06/25 09:00 02/06/25 09:31 Lisinopril 20 Mg Tablet PO 03/08/25 08:59 Not Given QDAY ANSHUL Montelukast Sodium 10 mg 02/06/25 09:00 02/06/25 09:31 Montelukast Sodium 10 Mg Tablet PO 03/08/25 08:59 Not Given DAILY ANSHUL Non-Formulary Medication 135 mg 02/06/25 09:00 02/06/25 09:31 Fenofibric Acid (Choline) PO 03/08/25 08:59 Not Given QDAY [facility] Non-Formulary Medication 150 mg 02/05/25 21:00 02/06/25 09:31 Quetiapine PO 03/07/25 20:59 Not Given BID ANSHUL Ondansetron HCl 4 mg 02/05/25 01:25 Ondansetron Inj 2 Mg/Ml Inj 2 Ml IVP 03/07/25 01:24 Q6H PRN NAUSEA OR VOMITING Protocol Pantoprazole Sodium 40 mg 02/05/25 09:00 02/06/25 09:14 Pantoprazole Inj 40 Mg Vial IVP 03/07/25 08:59 40 mg QDAY ANSHUL Administration Sennosides 1 tab 02/05/25 09:00 02/06/25 09:32 Senna Tablet PO 03/07/25 08:59 Not Given QDAY [facility] Protocol Plan Julissa Vidal (Sue) is an 89-year-old female with a past medical history of type 2 diabetes mellitus, hypertension, depression and anxiety who is admitted for acute encephalopathy. #Acute encephalopathy Likely prerenal azotemia secondary to dehydration vs hyperuremia vs polypharmacy. CT head, CXR, U-Tox, UA all negative, no leukocytosis, no fevers noted so low suspicion for infectious process at this time. On admission, BUN 58, creatinine 2.0 (baseline creatinine ~1.0?1.2). Overnight on 02/05-02/06, patient became agitated and required soft restraints and haloperidol x2. ? Holding home xanax and quetiapine ? Follow-up blood cultures ? Swallow eval passed ? Bladder scan ordered #Acute kidney injury, resolved ? Avoid nephrotoxins ? Renally dose medications #Type 2 diabetes mellitus ? SSI ? Hypoglycemia protocol in place #Hypertension ? Currently normotensive will resume antihypertensives as tolerated #Depression #Anxiety ? Holding home xanax and quetiapine Health Maintenance: Disposition: Telemetry, IV fluids Feeding: carbohydrate consistent Thrombo prophylaxis: Lovenox Gastric Ulcer prophylaxis: Pantoprazole CODE STATUS: Full code ----- Plan discussed with attending physician Dr. Taylor Guerra MD PGY-1 Internal Medicine Attending Provider Attestation/Addendum I have examined the patient, reviewed labs and imaging findings, discussed the case with the resident(s), and reviewed entered orders. I agree with the plan of care as outlined in this note, with these additional summaries/recommendations: Patient seen at bedside. Overnight patient became agitated and pulling at IVs. She received low-dose haloperidol without improvement and was eventually placed on soft wrist restraints. Today at bedside she is alert and oriented x 2. She does appear to have mild to moderate delirium this morning. Continue frequent reorientation and bright light during the day and limit noise at night. On admission creatinine 2.0 and BUN 58. Most likely secondary to prerenal azotemia from dehydration. Patient receiving IV maintenance fluids and creatinine improved to 1.2 today. Patient's hypotension has resolved and continue to monitor hemodynamics closely. Continue insulin sliding scale for diabetes mellitus type 2 with Accu-Cheks. Target blood sugar of 140-180 while hospitalized. We will reinstitute antihypertensives as needed. Patient has sinus bradycardia which appears asymptomatic and we will monitor for any syncopal episodes. Possibly related to donepezil for patient's underlying dementia. If worsens we will consult cardiology and hold donepezil. Cancel physical therapy as patient discharged back on hospice when medically cleared. Mild hypernatremia noted and continue IV fluids. Patient updated on the plan and in agreement. All questions answered to satisfaction. Please see residents note for additional details and management. Dr. Taylor MD
[2025-02-06] MEDS: DEXTROSE 5%-WATER 500 ML 75 ML IV (11:20)
--- NOTE | 2025-02-06 11:59 | PC.PT ---
Attempt to initiate PT evaluation but patient is combative. Patient unable to redirect. Patient has 1:1 sitter. Will cancel PT evaluation, patient is not a candidate for Physical therapy.
--- NOTE | 2025-02-06 14:57 | PC.SS ---
Rounding Note: Patient remains altered. Plan is to d/c home tomorrow with [facility].
[2025-02-06] MEDS: DONEPEZIL HCL 5 MG TABLET 10 MG PO (20:25)
[2025-02-06] MEDS: amLODIPine BESYLATE 5 MG TABLET PO (20:25)
[2025-02-07] VITALS (11 sets, daily range): BP systolic 113–185; BP diastolic 65–84; PULSE 54–115; RESP 14–96; TEMP 36.1–36.7; O2SAT 94–98; BMI 25.0
[2025-02-07] MEDS: DiphenhydrAMINE INJ 50 MG/ML VIAL 25 MG IVP (00:52)
[2025-02-07 05:48] LABS: Basophils # (Auto) 0.1 Thou/mm3 (0.0-0.2); Basophils % (Auto) 1 % (0-2.5); Eosinophils # (Auto) 0.2 Thou/mm3 (0.0-0.5); Eosinophils % (Auto) 2 % (0-10); Hematocrit 32.6 % (36.0-46.0); Hemoglobin 10.7 g/dL (12.0-16.0); Immature Granulocytes % (Auto) 0 % (0-0); Immature Granulocytes Auto 0.02 Thou/mm3 (0.00-0.00); Lymphocytes % (Auto) 26 % (10-50); Mean Corpuscular HGB Conc 32.8 g/dl (31.0-37.0); Mean Corpuscular Hemoglobin 30.4 pg (25.0-35.0); Mean Corpuscular Volume 93 fL (80-100); Monocytes # (Auto) 0.7 Thou/mm3 (0.0-0.8); Monocytes % (Auto) 9 % (0-12); Neutrophils # (Auto) 4.8 Thou/mm3 (1.8-7.7); Neutrophils % (Auto) 62 % (37-80); Nucleated Red Blood Cell % 0 /100 WBC (0); Platelet Count 227 Thou/mm3 (140-440); RDW Standard Deviation 52.6 fL (36.4-46.3); Red Blood Count 3.52 Miln/mm3 (4.00-5.20); White Blood Count 7.7 Thou/mm3 (3.6-11.0)
[2025-02-07 06:22] LABS: Alanine Aminotransferase 19 U/L (10-49); Albumin, Serum 3.8 gm/dL (3.4-4.8); Albumin/Globulin Ratio 1.7 (1.2-2.2); Alkaline Phosphatase 84 U/L (46-116); Anion Gap 13 (7-16); Aspartate Amino Transferase 44 U/L (0-34); BUN/Creatinine Ratio 18 Ratio (12-20); Bilirubin,Total 0.8 mg/dL (0.3-1.2); Blood Urea Nitrogen 20 mg/dL (9-23); Calcium 8.7 mg/dL (8.3-10.6); Calcium (Corrected) 8.9 mg/dL (8.5-10.1); Carbon Dioxide 23.2 mMol/L (20.0-31.0); Chloride 107 mMol/L (98-107); Creatinine (Component) 1.1 mg/dL (0.6-1.3); Estimated Creatinine Clearance 28.8 mL/min (>60); Globulin 2.3 gm/dL (2.3-3.5); Glucose 99 mg/dL (74-106); Osmolality,Calculated 287 (275-295); Phosphorous 2.2 mg/dL (2.4-5.1); Potassium 3.8 mMol/L (3.4-5.1); Sodium 143 mMol/L (136-145); Total Protein 6.1 gm/dL (5.7-8.2); eGFR 49 See Note
[2025-02-07] MEDS: hydroCHLOROthiazide 12.5 MG CAPSULE 25 MG PO (08:16)
[2025-02-07] MEDS: ATORVASTATIN CALCIUM 20 MG TABLET 40 MG PO (08:18)
[2025-02-07] MEDS: MONTELUKAST SODIUM 10 MG TABLET PO (08:18)
[2025-02-07] MEDS: Lisinopril 20 MG TABLET 40 MG PO (08:19)
[2025-02-07] MEDS: NAPH,KPH MBDB 1 PACKET (1.5 GM) 2 PACKET PO (08:20)
[2025-02-07] MEDS: PANTOPRAZOLE 40 MG TABLET PO (08:20)
[2025-02-07] MEDS: ENOXAPARIN SOD INJ 30 MG/0.3 ML SYRINGE SC (08:20)
[2025-02-07] MEDS: SENNA TABLET 1 TAB PO (08:20)
[2025-02-07] MEDS: BALSAM PERU/CASTOR OIL (Venelex) 60 GM TUBE TOP ×2 (08:21→20:54)
--- NOTE | 2025-02-07 10:05 | PC.SS ---
Addendum entered by DEMETRIO Mejia 02/07/25 16:21: SS update: planned d/c to SNF tomorrow. Left a voicemail for Jane at [facility] to determine if able to accept patient tomorrow at facility for short term SNF placement. Pending response. Patient's family is agreeable with short term SNF (one week or less) before patient's arrangement to assisted living facility at [facility]. Addendum entered by DEMETRIO Mejia 02/07/25 10:31: PASRR completed. Addendum entered by DEMETRIO Mejia 02/07/25 10:27: Family's preferred SNF is [facility]. Per local SNF's the patient will need another midnight for SNF placement. Updated resident Dr. Guerra to make aware. Original Note: SS follow up: spoke with patient's family regarding the d/c plan. They inform patient's room will be available on 02/09/25 at [facility] [place]. Per attending Dr. Vazquez and medical team, they are ready to discharge the patient today. Family indicates they will not have anyone to help care for the patient if she is discharged home. Spoke with the family and they want to try for SNF placement. Sent SNF inquiry via [facility]. Pending responses.
--- NOTE | 2025-02-07 11:50 | PD.RESPRO ---
Documentation for date of: 02/07/25 Subjective Subjective Interval history: Overnight patient was reported to be mildly agitated but did not require restraints or antipsychotics. Seen and examined in the morning and patient alert and oriented to self/birthdate/place but not year. Spoke to [id number] who states there are plans to move patient to [facility]. Will keep patient for one midnight stay in order for patient to go to for one night and then to [facility]. Exam Vital Signs Temp Pulse Resp BP Pulse Ox O2 Del Method 98.1 F 62 18 185/72 H 96 Room Air 02/07/25 08:00 02/07/25 11:05 02/07/25 11:05 02/07/25 08:19 02/07/25 08:00 02/07/25 08:00 Narrative Exam General: alert, oriented to self/birthday/place but not year, no acute distress, bilateral soft restraints HEENT: NC/AT, mucous membranes moist, bilateral sclera anicteric Cardiovascular: regular rate and rhythm, S1/S2 present, no murmurs appreciated Pulmonary: clear to auscultation bilaterally, no rales/rhonchi/wheezes Abdominal: soft, non-tender, non-distended, no rebound/guarding, normal bowel sounds present Musculoskeletal: normal ROM, no peripheral edema Skin: warm and dry, intact, no rashes Neuro: CN II-XII intact, no focal deficits Objective Labs 02/08/25 05:16 02/08/25 05:16 Labs: Laboratory Results - last 24 hr 02/07/25 04:34 WBC 7.7 RBC 3.52 L Hgb 10.7 L Hct 32.6 L MCV 93 MCH 30.4 MCHC 32.8 RDW Std Deviation 52.6 H Plt Count 227 Neut % (Auto) 62 Lymph % (Auto) 26 [place] % (Auto) 9 Eos % (Auto) 2 Baso % (Auto) 1 Neut # (Auto) 4.8 Lymph # (Auto) 2.0 [place] # (Auto) 0.7 Eos # (Auto) 0.2 Baso # (Auto) 0.1 Immature Gran # (Auto) 0.02 H Absolute Nucleated RBC 0.00 Immature Gran % 0 Nucleated RBC % 0 Sodium 143 Potassium 3.8 D Chloride 107 Carbon Dioxide 23.2 Anion Gap 13 BUN 20 Creatinine 1.1 Estim Creat Clear Calc 28.8 L eGFR 49 L BUN/Creatinine Ratio 18 Glucose 99 Calculated Osmolality 287 Calcium 8.7 Corrected Calcium 8.9 Phosphorus 2.2 L Magnesium 2.0 Total Bilirubin 0.8 AST 44 H ALT 19 Alkaline Phosphatase 84 Total Protein 6.1 Albumin 3.8 Globulin 2.3 Albumin/Globulin Ratio 1.7 ABG Interpretation ABG results: 02/04/25 22:43 ABG pH 7.39 ABG pCO2 45 ABG pO2 69 L ABG HCO3 27 H ABG O2 Saturation 94 ABG Base Excess 2 Quality Measures Quality Measures none Advance care planning discussed with:: patient and other ([id number]) Assessment & Plan Assessment Current Active Medications: Generic Name Dose Route Start Last Admin Trade Name Freq PRN Reason Stop Dose Admin Acetaminophen 650 mg 02/05/25 01:25 Acetaminophen 325 Mg Tablet PO 03/07/25 01:24 Q6H PRN Fever >99.5 Acetaminophen 1,000 mg 02/06/25 14:54 Acetaminophen 500 Mg Tablet PO 03/07/25 01:24 Q6H PRN PAIN SCALE 1-3 (mild Alprazolam 0.5 mg 02/05/25 20:30 02/06/25 09:30 Alprazolam 0.25 Mg Tablet PO 02/10/25 20:29 Not Given QDAY ANSHUL Amlodipine Besylate 5 mg 02/05/25 20:10 02/06/25 20:25 Amlodipine Besylate 5 Mg Tablet PO 03/07/25 20:09 5 mg HS ANSHUL Administration Atorvastatin Calcium 40 mg 02/06/25 09:00 02/07/25 08:18 Atorvastatin Calcium 20 Mg Tablet PO 03/08/25 08:59 40 mg QDAY ANSHUL Administration Balsam [place] Oil 0 gm 02/05/25 21:00 02/07/25 08:21 Balsam [place] Oil (Venelex) 60 Gm Tube TOP 03/07/25 20:59 1 applicatio BID ANSHUL Administration Donepezil HCl 10 mg 02/05/25 21:00 02/06/25 20:25 Donepezil Hcl 5 Mg Tablet PO 03/07/25 20:59 10 mg HS ANSHUL Administration Enoxaparin Sodium 30 mg 02/07/25 09:00 02/07/25 08:20 Enoxaparin Sod Inj 30 Mg/0.3 Ml Syringe SC 02/19/25 08:59 30 mg QDAY ANSHUL Administration Hydrochlorothiazide 25 mg 02/06/25 09:00 02/07/25 08:16 Hydrochlorothiazide 12.5 Mg Capsule PO 03/08/25 08:59 25 mg QDAY ANSHUL Administration Lisinopril 40 mg 02/06/25 09:00 02/07/25 08:19 Lisinopril 20 Mg Tablet PO 03/08/25 08:59 40 mg QDAY ANSHUL Administration Montelukast Sodium 10 mg 02/06/25 09:00 02/07/25 08:18 Montelukast Sodium 10 Mg Tablet PO 03/08/25 08:59 10 mg DAILY ANSHUL Administration Non-Formulary Medication 135 mg 02/06/25 09:00 02/07/25 08:21 Fenofibric Acid (Choline) PO 03/08/25 08:59 Not Given QDAY ANSHUL Non-Formulary Medication 150 mg 02/05/25 21:00 02/06/25 09:31 Quetiapine PO 03/07/25 20:59 Not Given BID ANSHUL Ondansetron HCl 4 mg 02/05/25 01:25 Ondansetron Inj 2 Mg/Ml Inj 2 Ml IVP 03/07/25 01:24 Q6H PRN NAUSEA OR VOMITING Protocol Pantoprazole Sodium 40 mg 02/07/25 09:00 02/07/25 08:20 Pantoprazole 40 Mg Tablet PO 03/07/25 08:59 40 mg QDAY ANSHUL Administration Sennosides 1 tab 02/05/25 09:00 02/07/25 08:20 Senna Tablet PO 03/07/25 08:59 1 tab QDAY ANSHUL Administration Protocol Plan Julissa Vidal (Sue) is an 89-year-old female with a past medical history of type 2 diabetes mellitus, hypertension, depression and anxiety who is admitted for acute encephalopathy. #Acute encephalopathy, improving Likely prerenal azotemia secondary to dehydration vs hyperuremia vs polypharmacy. CT head, CXR, U-Tox, UA all negative, no leukocytosis, no fevers noted so low suspicion for infectious process at this time. On admission, BUN 58, creatinine 2.0 (baseline creatinine ~1.0?1.2). Overnight on 02/05-06/12, patient became agitated and required soft restraints and haloperidol x2. ? Holding home xanax, quetiapine, and gabapentin ? Follow-up blood cultures ? Swallow eval passed #Acute kidney injury, resolved #Hypertonic hypernatremia, resolved ? Avoid nephrotoxins ? Renally dose medications #Type 2 diabetes mellitus ? SSI ? Hypoglycemia protocol in place #Hypertension ? Amlodipine 5 mg ? HCTZ 25 mg daily ? Lisinopril 40 mg daily #Depression #Anxiety ? Holding home xanax and quetiapine Health Maintenance: Disposition: Telemetry, midnight stay for SNF Feeding: carbohydrate consistent Thrombo prophylaxis: Lovenox Gastric Ulcer prophylaxis: Pantoprazole CODE STATUS: Full code ----- Plan discussed with attending physician Dr. Taylor Guerra MD PGY-1 Internal Medicine Attending Provider Attestation/Addendum I have examined the patient, reviewed labs and imaging findings, discussed the case with the resident(s), and reviewed entered orders. I agree with the plan of care as outlined in this note, with these additional summaries/recommendations: Patient seen at bedside. No acute overnight events. Patient appears at her baseline mental status. Patient has no acute complaints today. Patient is medically cleared and pending placement. Continue non-Pharm measures to prevent delirium. VIVIANA and hypotension resolved. Continue insulin sliding scale for diabetes mellitus type 2 with Accu-Cheks. Target blood sugar of 140-180 while hospitalized. Patient updated on the plan and in agreement. All questions answered to satisfaction. Please see residents note for additional details and management. Dr. Taylor MD
[2025-02-07] MEDS: amLODIPine BESYLATE 5 MG TABLET PO (20:48)
[2025-02-07] MEDS: DONEPEZIL HCL 5 MG TABLET 10 MG PO (20:51)
[2025-02-08] VITALS (10 sets, daily range): BP systolic 121–166; BP diastolic 63–75; PULSE 52–76; RESP 12–99; TEMP 36.2–37.2; O2SAT 95–99; BMI 25.3; BMI 25.4
[2025-02-08] MEDS: DiphenhydrAMINE INJ 50 MG/ML VIAL 25 MG IVP (01:27)
[2025-02-08 06:00] LABS: Basophils # (Auto) 0.1 Thou/mm3 (0.0-0.2); Basophils % (Auto) 1 % (0-2.5); Eosinophils # (Auto) 0.3 Thou/mm3 (0.0-0.5); Eosinophils % (Auto) 3 % (0-10); Hematocrit 34.4 % (36.0-46.0); Hemoglobin 11.3 g/dL (12.0-16.0); Immature Granulocytes % (Auto) 0 % (0-0); Immature Granulocytes Auto 0.03 Thou/mm3 (0.00-0.00); Lymphocytes # (Auto) 1.7 Thou/mm3 (1.0-4.8); Lymphocytes % (Auto) 20 % (10-50); Mean Corpuscular HGB Conc 32.8 g/dl (31.0-37.0); Mean Corpuscular Hemoglobin 30.2 pg (25.0-35.0); Mean Corpuscular Volume 92 fL (80-100); Monocytes # (Auto) 0.7 Thou/mm3 (0.0-0.8); Monocytes % (Auto) 9 % (0-12); Neutrophils # (Auto) 5.6 Thou/mm3 (1.8-7.7); Neutrophils % (Auto) 67 % (37-80); Nucleated Red Blood Cell % 0 /100 WBC (0); Platelet Count 225 Thou/mm3 (140-440); RDW Standard Deviation 52.1 fL (36.4-46.3); Red Blood Count 3.74 Miln/mm3 (4.00-5.20); White Blood Count 8.3 Thou/mm3 (3.6-11.0)
[2025-02-08 06:29] LABS: Anion Gap 14 (7-16); BUN/Creatinine Ratio 18 Ratio (12-20); Blood Urea Nitrogen 20 mg/dL (9-23); Calcium 9.1 mg/dL (8.3-10.6); Carbon Dioxide 22.9 mMol/L (20.0-31.0); Chloride 105 mMol/L (98-107); Creatinine (Component) 1.1 mg/dL (0.6-1.3); Estimated Creatinine Clearance 28.9 mL/min (>60); Glucose 108 mg/dL (74-106); Osmolality,Calculated 286 (275-295); Phosphorous 3.2 mg/dL (2.4-5.1); Potassium 3.6 mMol/L (3.4-5.1); Sodium 142 mMol/L (136-145); eGFR 49 See Note
--- NOTE | 2025-02-08 08:35 | PC.SS ---
Addendum entered by Uma Espinoza 02/08/25 13:29: SS informed by [facility] SNF patient must be off restraints AND off a 1-1 sitter for 24hrs. before they can accept patient to their SNF.? Dr. Guerra informed. Patient[facility] to be available 02/09/25. Addendum entered by mUa Espinoza 02/08/25 11:20: 1111 SS contacted patient's daughter Priscilla [phone] and informed her of pending bedside evaluation before patient can discharge today. SS to inform Priscilla of any updates provided. Priscilla stated she was headed to [facility] to be at bedside shortly. [id number] informed SS patient's daughter Priscilla [phone] is requesting update on today's discharge to [facility]. RN informed a bedside evalulation was to be completed today by [facility]. SS to contact patient's daughter to provide update. Original Note: SS contacted [facility] to confirm if patient can discharge to SNF today; Jane stated she will need to complete bedside evaluation before patient can be accpeted. [facility] to complete bedside evaluation today, 1100.
[2025-02-08] MEDS: MONTELUKAST SODIUM 10 MG TABLET PO (08:45)
[2025-02-08] MEDS: ATORVASTATIN CALCIUM 20 MG TABLET 40 MG PO (08:45)
[2025-02-08] MEDS: SENNA TABLET 1 TAB PO (08:45)
[2025-02-08] MEDS: Lisinopril 20 MG TABLET 40 MG PO (08:45)
[2025-02-08] MEDS: ENOXAPARIN SOD INJ 30 MG/0.3 ML SYRINGE SC (08:46)
[2025-02-08] MEDS: BALSAM PERU/CASTOR OIL (Venelex) 60 GM TUBE TOP ×2 (08:46→20:45)
[2025-02-08] MEDS: hydroCHLOROthiazide 12.5 MG CAPSULE 25 MG PO (08:46)
[2025-02-08] MEDS: PANTOPRAZOLE 40 MG TABLET PO (08:46)
--- NOTE | 2025-02-08 13:00 | PD.RESPRO ---
Documentation for date of: 02/08/25 Subjective Subjective Interval history: No acute overnight events. Seen and examined at bedside and patient remains alert and oriented to self/ date/place but not year. Acute encephalopathy for which patient had been admitted for is now resolved in addition to VIVIANA, thus patient now medically cleared for discharge. Planned to go to SNF in the meantime but declined as patient needs to be without a sitter for 24 hours. Will await for placement at [facility] in the meantime. Exam Vital Signs Temp Pulse Resp BP Pulse Ox O2 Del Method 98.8 F 57 L 17 121/64 98 Room Air 02/08/25 12:00 02/08/25 12:00 02/08/25 12:00 02/08/25 12:00 02/08/25 12:00 02/08/25 08:00 Narrative Exam General: alert, oriented to self/birthday/place but not year, no acute distress, bilateral soft restraints HEENT: NC/AT, mucous membranes moist, bilateral sclera anicteric Cardiovascular: regular rate and rhythm, S1/S2 present, no murmurs appreciated Pulmonary: clear to auscultation bilaterally, no rales/rhonchi/wheezes Abdominal: soft, non-tender, non-distended, no rebound/guarding, normal bowel sounds present Musculoskeletal: normal ROM, no peripheral edema Skin: warm and dry, intact, no rashes Neuro: CN II-XII intact, no focal deficits Objective Labs 02/09/25 05:20 02/09/25 05:20 Labs: Laboratory Results - last 24 hr 02/08/25 05:16 WBC 8.3 RBC 3.74 L Hgb 11.3 L Hct 34.4 L MCV 92 MCH 30.2 MCHC 32.8 RDW Std Deviation 52.1 H Plt Count 225 Neut % (Auto) 67 Lymph % (Auto) 20 [place] % (Auto) 9 Eos % (Auto) 3 Baso % (Auto) 1 Neut # (Auto) 5.6 Lymph # (Auto) 1.7 [place] # (Auto) 0.7 Eos # (Auto) 0.3 Baso # (Auto) 0.1 Immature Gran # (Auto) 0.03 H Absolute Nucleated RBC 0.00 Immature Gran % 0 Nucleated RBC % 0 Sodium 142 Potassium 3.6 Chloride 105 Carbon Dioxide 22.9 Anion Gap 14 BUN 20 Creatinine 1.1 Estim Creat Clear Calc 28.9 L eGFR 49 L BUN/Creatinine Ratio 18 Glucose 108 H Calculated Osmolality 286 Calcium 9.1 Phosphorus 3.2 ABG Interpretation ABG results: 02/04/25 22:43 ABG pH 7.39 ABG pCO2 45 ABG pO2 69 L ABG HCO3 27 H ABG O2 Saturation 94 ABG Base Excess 2 Quality Measures Quality Measures none Advance care planning discussed with:: patient Assessment & Plan Assessment Current Active Medications: Generic Name Dose Route Start Last Admin Trade Name Freq PRN Reason Stop Dose Admin Acetaminophen 650 mg 02/05/25 01:25 Acetaminophen 325 Mg Tablet PO 03/07/25 01:24 Q6H PRN Fever >99.5 Acetaminophen 1,000 mg 02/06/25 14:54 Acetaminophen 500 Mg Tablet PO 03/07/25 01:24 Q6H PRN PAIN SCALE 1-3 (mild Alprazolam 0.5 mg 02/05/25 20:30 02/06/25 09:30 Alprazolam 0.25 Mg Tablet PO 02/10/25 20:29 Not Given QDAY ANSHUL Amlodipine Besylate 5 mg 02/05/25 20:10 02/07/25 20:48 Amlodipine Besylate 5 Mg Tablet PO 03/07/25 20:09 5 mg HS ANSHUL Administration Atorvastatin Calcium 40 mg 02/06/25 09:00 02/08/25 08:45 Atorvastatin Calcium 20 Mg Tablet PO 03/08/25 08:59 40 mg QDAY ANSHUL Administration Balsam [place] Oil 0 gm 02/05/25 21:00 02/08/25 08:46 Balsam [place] Oil (Venelex) 60 Gm Tube TOP 03/07/25 20:59 1 applicatio BID ANSHUL Administration Donepezil HCl 10 mg 02/05/25 21:00 02/07/25 20:51 Donepezil Hcl 5 Mg Tablet PO 03/07/25 20:59 10 mg HS ANSHUL Administration Enoxaparin Sodium 30 mg 02/07/25 09:00 02/08/25 08:46 Enoxaparin Sod Inj 30 Mg/0.3 Ml Syringe SC 02/19/25 08:59 30 mg QDAY ANSHUL Administration Hydrochlorothiazide 25 mg 02/06/25 09:00 02/08/25 08:46 Hydrochlorothiazide 12.5 Mg Capsule PO 03/08/25 08:59 25 mg QDAY ANSHUL Administration Lisinopril 40 mg 02/06/25 09:00 02/08/25 08:45 Lisinopril 20 Mg Tablet PO 03/08/25 08:59 40 mg QDAY ANSHUL Administration Montelukast Sodium 10 mg 02/06/25 09:00 02/08/25 08:45 Montelukast Sodium 10 Mg Tablet PO 03/08/25 08:59 10 mg DAILY ANSHUL Administration Non-Formulary Medication 135 mg 02/06/25 09:00 02/08/25 08:42 Fenofibric Acid (Choline) PO 03/08/25 08:59 Not Given QDAY ANSHUL Non-Formulary Medication 150 mg 02/05/25 21:00 02/06/25 09:31 Quetiapine PO 03/07/25 20:59 Not Given BID ANSHUL Ondansetron HCl 4 mg 02/05/25 01:25 Ondansetron Inj 2 Mg/Ml Inj 2 Ml IVP 03/07/25 01:24 Q6H PRN NAUSEA OR VOMITING Protocol Pantoprazole Sodium 40 mg 02/07/25 09:00 02/08/25 08:46 Pantoprazole 40 Mg Tablet PO 03/07/25 08:59 40 mg QDAY ANSHUL Administration Sennosides 1 tab 02/05/25 09:00 02/08/25 08:45 Senna Tablet PO 03/07/25 08:59 1 tab QDAY ANSHUL Administration Protocol Plan Julissa Vidal (Sue) is an 89-year-old female with a past medical history of type 2 diabetes mellitus, hypertension, depression and anxiety who is admitted for acute encephalopathy. #Acute encephalopathy, improving Likely prerenal azotemia secondary to dehydration vs hyperuremia vs polypharmacy. CT head, CXR, U-Tox, UA all negative, no leukocytosis, no fevers noted so low suspicion for infectious process at this time. On admission, BUN 58, creatinine 2.0 (baseline creatinine ~1.0?1.2). Overnight on 02/05-02/06, patient became agitated and required soft restraints and haloperidol x2. ? Holding home xanax, quetiapine, and gabapentin ? Follow-up blood cultures ? Swallow eval passed #Acute kidney injury, resolved #Hypertonic hypernatremia, resolved ? Avoid nephrotoxins ? Renally dose medications #Type 2 diabetes mellitus ? SSI ? Hypoglycemia protocol in place #Hypertension ? Amlodipine 5 mg ? HCTZ 25 mg daily ? Lisinopril 40 mg daily #Agitation related to dementia #Insomnia ? Holding home xanax, gabapentin and quetiapine ? Quetiapine 150 mg as needed at night for agitation or insomnia Health Maintenance: Disposition: Telemetry, pending placement Feeding: carbohydrate consistent Thrombo prophylaxis: Lovenox Gastric Ulcer prophylaxis: Pantoprazole CODE STATUS: Full code ----- Plan discussed with attending physician Dr. Taylor Guerra MD PGY-1 Internal Medicine Attending Provider Attestation/Addendum I have examined the patient, reviewed labs and imaging findings, discussed the case with the resident(s), and reviewed entered orders. I agree with the plan of care as outlined in this note. Dr. Taylor MD
[2025-02-08] MEDS: amLODIPine BESYLATE 5 MG TABLET PO (20:42)
[2025-02-08] MEDS: DONEPEZIL HCL 5 MG TABLET 10 MG PO (20:42)
[2025-02-09] VITALS (9 sets, daily range): BP systolic 147–158; BP diastolic 55–70; PULSE 56–87; RESP 16–19; TEMP 36.1–36.4; O2SAT 94–98; BMI 24.9
[2025-02-09 06:25] LABS: Basophils # (Auto) 0.1 Thou/mm3 (0.0-0.2); Basophils % (Auto) 1 % (0-2.5); Eosinophils # (Auto) 0.3 Thou/mm3 (0.0-0.5); Eosinophils % (Auto) 4 % (0-10); Hematocrit 33.1 % (36.0-46.0); Hemoglobin 10.9 g/dL (12.0-16.0); Immature Granulocytes % (Auto) 0 % (0-0); Immature Granulocytes Auto 0.03 Thou/mm3 (0.00-0.00); Lymphocytes # (Auto) 2.6 Thou/mm3 (1.0-4.8); Lymphocytes % (Auto) 30 % (10-50); Mean Corpuscular HGB Conc 32.9 g/dl (31.0-37.0); Mean Corpuscular Hemoglobin 30.1 pg (25.0-35.0); Mean Corpuscular Volume 91 fL (80-100); Monocytes # (Auto) 0.9 Thou/mm3 (0.0-0.8); Monocytes % (Auto) 11 % (0-12); Neutrophils # (Auto) 4.7 Thou/mm3 (1.8-7.7); Neutrophils % (Auto) 55 % (37-80); Nucleated Red Blood Cell % 0 /100 WBC (0); Platelet Count 259 Thou/mm3 (140-440); RDW Standard Deviation 51.3 fL (36.4-46.3); Red Blood Count 3.62 Miln/mm3 (4.00-5.20); White Blood Count 8.6 Thou/mm3 (3.6-11.0)
[2025-02-09 06:58] LABS: Anion Gap 13 (7-16); BUN/Creatinine Ratio 26 Ratio (12-20); Blood Urea Nitrogen 29 mg/dL (9-23); Calcium 9.3 mg/dL (8.3-10.6); Carbon Dioxide 24.8 mMol/L (20.0-31.0); Chloride 104 mMol/L (98-107); Creatinine (Component) 1.1 mg/dL (0.6-1.3); Estimated Creatinine Clearance 27.8 mL/min (>60); Glucose 87 mg/dL (74-106); Osmolality,Calculated 287 (275-295); Phosphorous 3.4 mg/dL (2.4-5.1); Potassium 3.4 mMol/L (3.4-5.1); Sodium 142 mMol/L (136-145); eGFR 49 See Note
[2025-02-09] MEDS: BALSAM PERU/CASTOR OIL (Venelex) 60 GM TUBE TOP ×2 (09:39→20:01)
--- NOTE | 2025-02-09 10:53 | PD.RESPRO ---
Documentation for date of: 02/09/25 Subjective Subjective Interval history: No acute overnight events. Patient did not require any medications and has no reported incidence of agitation. Seen and examined at bedside and in a pleasant mood and no complaints at this time. Currently awaiting placement, likely to be [facility] SNF tomorrow as it will be 24 hours without a sitter. Refused medications this morning, including antihypertensives but BP 122/68 and other vital signs stable, CBC and CMP largely unremarkable. Exam Vital Signs Temp Pulse Resp BP Pulse Ox O2 Del Method 97.4 F 65 16 128/68 96 Nasal Cannula 02/09/25 07:43 02/09/25 09:31 02/09/25 07:43 02/09/25 09:31 02/09/25 07:43 02/09/25 07:43 Narrative Exam General: alert, oriented to self/birthday/place but not year, no acute distress HEENT: NC/AT, mucous membranes moist, bilateral sclera anicteric Cardiovascular: regular rate and rhythm, S1/S2 present, no murmurs appreciated Pulmonary: clear to auscultation bilaterally, no rales/rhonchi/wheezes Abdominal: soft, non-tender, non-distended, no rebound/guarding, normal bowel sounds present Musculoskeletal: normal ROM, no peripheral edema Skin: warm and dry, intact, no rashes Neuro: CN II-XII intact, no focal deficits Objective Labs 02/10/25 05:12 02/10/25 05:12 Labs: Laboratory Results - last 24 hr 02/09/25 05:20 WBC 8.6 RBC 3.62 L Hgb 10.9 L Hct 33.1 L MCV 91 MCH 30.1 MCHC 32.9 RDW Std Deviation 51.3 H Plt Count 259 D Neut % (Auto) 55 Lymph % (Auto) 30 [place] % (Auto) 11 Eos % (Auto) 4 Baso % (Auto) 1 Neut # (Auto) 4.7 Lymph # (Auto) 2.6 [place] # (Auto) 0.9 H Eos # (Auto) 0.3 Baso # (Auto) 0.1 Immature Gran # (Auto) 0.03 H Absolute Nucleated RBC 0.00 Immature Gran % 0 Nucleated RBC % 0 Sodium 142 Potassium 3.4 Chloride 104 Carbon Dioxide 24.8 Anion Gap 13 BUN 29 H Creatinine 1.1 Estim Creat Clear Calc 27.8 L eGFR 49 L BUN/Creatinine Ratio 26 H Glucose 87 Calculated Osmolality 287 Calcium 9.3 Phosphorus 3.4 ABG Interpretation ABG results: 02/04/25 22:43 ABG pH 7.39 ABG pCO2 45 ABG pO2 69 L ABG HCO3 27 H ABG O2 Saturation 94 ABG Base Excess 2 Quality Measures Quality Measures none Advance care planning discussed with:: patient Assessment & Plan Assessment Current Active Medications: Generic Name Dose Route Start Last Admin Trade Name [place] PRN Reason Stop Dose Admin Acetaminophen 650 mg 02/05/25 01:25 Acetaminophen 325 Mg Tablet PO 03/07/25 01:24 Q6H PRN Fever >99.5 Acetaminophen 1,000 mg 02/06/25 14:54 Acetaminophen 500 Mg Tablet PO 03/07/25 01:24 Q6H PRN PAIN SCALE 1-3 (mild Alprazolam 0.5 mg 02/05/25 20:30 02/06/25 09:30 Alprazolam 0.25 Mg Tablet PO 02/10/25 20:29 Not Given QDAY ANSHUL Amlodipine Besylate 5 mg 02/05/25 20:10 02/08/25 20:42 Amlodipine Besylate 5 Mg Tablet PO 03/07/25 20:09 5 mg HS ANSHUL Administration Atorvastatin Calcium 40 mg 02/06/25 09:00 02/09/25 09:32 Atorvastatin Calcium 20 Mg Tablet PO 03/08/25 08:59 40 mg QDAY ANSHUL Administration Balsam [place] Oil 0 gm 02/05/25 21:00 02/09/25 09:39 Balsam [place] Oil (Venelex) 60 Gm Tube TOP 03/07/25 20:59 1 applicatio BID ANSHUL Administration Donepezil HCl 10 mg 02/05/25 21:00 02/08/25 20:42 Donepezil Hcl 5 Mg Tablet PO 03/07/25 20:59 10 mg HS ANSHUL Administration Enoxaparin Sodium 30 mg 02/07/25 09:00 02/09/25 09:32 Enoxaparin Sod Inj 30 Mg/0.3 Ml Syringe SC 02/19/25 08:59 30 mg QDAY ANSHUL Administration Hydrochlorothiazide 25 mg 02/06/25 09:00 02/09/25 09:27 Hydrochlorothiazide 12.5 Mg Capsule PO 03/08/25 08:59 25 mg QDAY ANSHUL Administration Lisinopril 40 mg 02/06/25 09:00 02/09/25 09:31 Lisinopril 20 Mg Tablet PO 03/08/25 08:59 40 mg QDAY ANSHUL Administration Montelukast Sodium 10 mg 02/06/25 09:00 02/09/25 09:31 Montelukast Sodium 10 Mg Tablet PO 03/08/25 08:59 10 mg DAILY ANSHUL Administration Non-Formulary Medication 135 mg 02/06/25 09:00 02/09/25 09:32 Fenofibric Acid (Choline) PO 03/08/25 08:59 Not Given QDAY ANSHUL Ondansetron HCl 4 mg 02/05/25 01:25 Ondansetron Inj 2 Mg/Ml Inj 2 Ml IVP 03/07/25 01:24 Q6H PRN NAUSEA OR VOMITING Protocol Pantoprazole Sodium 40 mg 02/07/25 09:00 02/09/25 09:31 Pantoprazole 40 Mg Tablet PO 03/07/25 08:59 40 mg QDAY ANSHUL Administration Quetiapine Fumarate 150 mg 02/08/25 13:24 Quetiapine Fumarate 25 Mg Tablet PO 03/10/25 20:59 HS PRN Agitation, insomnia Sennosides 1 tab 02/05/25 09:00 02/09/25 09:39 Senna Tablet PO 03/07/25 08:59 1 tab QDAY ANSHUL Administration Protocol Plan Julissa Vidal (Sue) is an 89-year-old female with a past medical history of type 2 diabetes mellitus, hypertension, depression and anxiety who is admitted for acute encephalopathy. #Acute encephalopathy, resolved Likely prerenal azotemia secondary to dehydration vs hyperuremia vs polypharmacy. CT head, CXR, U-Tox, UA all negative, no leukocytosis, no fevers noted so low suspicion for infectious process at this time. On admission, BUN 58, creatinine 2.0 (baseline creatinine ~1.0?1.2). Overnight on 02/05-02/06, patient became agitated and required soft restraints and haloperidol x2. ? Holding home xanax and gabapentin ? Blood cultures negative ? Swallow eval passed ? Currently pending placement to [facility], likely DC tomorrow #Acute kidney injury, resolved #Hypertonic hypernatremia, resolved ? Avoid nephrotoxins ? Renally dose medications #Type 2 diabetes mellitus ? SSI ? Hypoglycemia protocol in place #Hypertension ? Amlodipine 5 mg ? HCTZ 25 mg daily ? Lisinopril 40 mg daily #Agitation related to dementia #Insomnia ? Holding home xanax, gabapentin and quetiapine ? Quetiapine 150 mg as needed at night for agitation or insomnia Health Maintenance: Disposition: Telemetry, pending placement Feeding: carbohydrate consistent Thrombo prophylaxis: Lovenox Gastric Ulcer prophylaxis: Pantoprazole CODE STATUS: Full code ----- Plan discussed with attending physician Dr. Taylor Guerra MD PGY-1 Internal Medicine Attending Provider Attestation/Addendum I have examined the patient, reviewed labs and imaging findings, discussed the case with the resident(s), and reviewed entered orders. I agree with the plan of care as outlined in this note. Dr. Taylor MD
--- NOTE | 2025-02-09 11:07 | PC.SS ---
SS spoke to Priscilla at [facility] in regards to DC today. Per Priscilla they wish for pt to be off 1:1 sitter for 24hrs. Per RN, Deepthi was taken off yesterday evening, unsure of time. Per Priscilla they can accept pt tomorrow. SS contacted patient's daughter Priscilla [phone] and informed her of update, and pt not being able to DC till tomorrow. Priscilla is agreeable to plan. SS inquired on Assisted Living in which Priscilla stated pt has a room but it is not prepared for her just yet and wont be ready for her to move in till later this week. Plan is for pt to go to [facility] and transition from [facility] to assisted living. Dr. Guerra updated.
[2025-02-09] MEDS: amLODIPine BESYLATE 5 MG TABLET PO (20:01)
[2025-02-09] MEDS: DONEPEZIL HCL 5 MG TABLET 10 MG PO (20:01)
[2025-02-10] VITALS (7 sets, daily range): BP systolic 121–155; BP diastolic 59–68; PULSE 52–92; RESP 15–17; TEMP 36.2–36.6; O2SAT 96–98; BMI 24.3
[2025-02-10 06:02] LABS: Basophils # (Auto) 0.1 Thou/mm3 (0.0-0.2); Basophils % (Auto) 1 % (0-2.5); Eosinophils # (Auto) 0.3 Thou/mm3 (0.0-0.5); Eosinophils % (Auto) 4 % (0-10); Hematocrit 34.9 % (36.0-46.0); Hemoglobin 11.6 g/dL (12.0-16.0); Immature Granulocytes % (Auto) 0 % (0-0); Immature Granulocytes Auto 0.03 Thou/mm3 (0.00-0.00); Lymphocytes # (Auto) 2.4 Thou/mm3 (1.0-4.8); Lymphocytes % (Auto) 28 % (10-50); Mean Corpuscular HGB Conc 33.2 g/dl (31.0-37.0); Mean Corpuscular Hemoglobin 30.6 pg (25.0-35.0); Mean Corpuscular Volume 92 fL (80-100); Monocytes # (Auto) 0.9 Thou/mm3 (0.0-0.8); Monocytes % (Auto) 11 % (0-12); Neutrophils # (Auto) 4.8 Thou/mm3 (1.8-7.7); Neutrophils % (Auto) 56 % (37-80); Nucleated Red Blood Cell % 0 /100 WBC (0); Platelet Count 240 Thou/mm3 (140-440); RDW Standard Deviation 52.5 fL (36.4-46.3); Red Blood Count 3.79 Miln/mm3 (4.00-5.20); White Blood Count 8.6 Thou/mm3 (3.6-11.0)
[2025-02-10 06:39] LABS: Anion Gap 15 (7-16); BUN/Creatinine Ratio 39 Ratio (12-20); Blood Urea Nitrogen 39 mg/dL (9-23); Calcium 9.3 mg/dL (8.3-10.6); Carbon Dioxide 23.6 mMol/L (20.0-31.0); Chloride 104 mMol/L (98-107); Estimated Creatinine Clearance 30.3 mL/min (>60); Glucose 105 mg/dL (74-106); Osmolality,Calculated 294 (275-295); Phosphorous 3.4 mg/dL (2.4-5.1); Potassium 3.6 mMol/L (3.4-5.1); Sodium 143 mMol/L (136-145); eGFR 55 See Note
[2025-02-10] MEDS: ATORVASTATIN CALCIUM 20 MG TABLET 40 MG PO (08:36)
[2025-02-10] MEDS: ENOXAPARIN SOD INJ 30 MG/0.3 ML SYRINGE SC (08:36)
[2025-02-10] MEDS: SENNA TABLET 1 TAB PO (08:36)
[2025-02-10] MEDS: hydroCHLOROthiazide 12.5 MG CAPSULE 25 MG PO (08:36)
[2025-02-10] MEDS: BALSAM PERU/CASTOR OIL (Venelex) 60 GM TUBE TOP (08:37)
[2025-02-10] MEDS: PANTOPRAZOLE 40 MG TABLET PO (08:37)
[2025-02-10] MEDS: MONTELUKAST SODIUM 10 MG TABLET PO (08:37)
[2025-02-10] MEDS: Lisinopril 20 MG TABLET 40 MG PO (08:37)
--- NOTE | 2025-02-10 10:24 | PC.SS ---
Addendum entered by Felisha Sanchez 02/10/25 11:21: SS Follow up note; SS had DENNY form signed by RN, Sheri Kahn. SS contacted [facility] to set up transportation for 1300. SS contacted Patient's daughter Priscilla and patient's nurse, Stef as well as informed [facility]. Original Note: SS follow up note; SS was contacted by patient's daughter, Priscilla. She informed SS that plans had changed and that they have decided to have patient discharge home, she informed SS that [facility] had already delivered DME. Priscilla informed SS that patient will be at home until [facility] accepts patient. SS notified [facility]. SS inquired about patient not having transportation coverage and Priscilla informed S that she is not able to provide payment. SS informed Priscilla that [facility] will cover one time patient at the time. Priscilla verbalized understanding. SS will need to have transfer nurse sign DENNY form form transportation.
--- NOTE | 2025-02-10 11:45 | ESDS_ITS ---
Planned Discharge Date 02/10/25 DS: Providers Provider Date of admission: 02/05/25 01:25 Primary care physician: Hiral Goss MD Admitting Provider: Damion Coon MD Attending Provider on Admission: Ponce Vazquez MD Consults: 02/05/25 01:44 Referral Speech Therapy Stat Comment: 02/06/25 04:07 Referral Wound Care Routine Comment: left heel and buttock 02/07/25 09:50 Referral Hospice Routine Comment: 02/07/25 15:37 Referral Nutritional Services Routine Comment: Wounds Referral OP Wound Healing Dept Routine Comment: Left buttocks and left heel pressure injuries Attending Provider on DC: Robert Guerra MD Discharging Provider: Robert Guerra MD DS: Diagnosis Problem List Completed Was Problem List Reviewed/Reconciled?: Yes Hospital Course Hospital Course Hospital course: Julissa Vidal (Sue) is an 89-year-old female with a past medical history of type 2 diabetes mellitus and hypertension who is admitted for acute encephalopathy. CT head was negative for any acute changes, urinalysis negative for signs of UTI, CXR negative for pneumonia. Home xanax, quetiapine, and gabapentin were held due to possibility of polypharmacy and overnight patient's symptoms improved such that she was alert to self, date, and place but not year. Spoke to [id number] and states that patient also has baseline dementia and is currently planning to move patient to [facility] in [place] soon and plans were to discharge patient to SNF in meantime until kimn can go to [facility]. However, patient unable to go to SNF as she required a sitter at night for . Following day, patient no longer required sitter and was ready to be discharged to SNF but [id number] decided that plans changed and they will have patient discharged back home and that [facility] had already had DME delivered and will be at home until accepted to [facility]. Vital signs stable, CBC and chem panel unremarkable and medically cleared for discharge. Diagnoses during admission: #Acute encephalopathy, resolved #Acute kidney injury, resolved #Hypertonic hypernatremia, resolved #Type 2 diabetes mellitus #Hypertension #Agitation related to dementia #Insomnia Discharge instructions: ? Hold on taking your donepezil, alprazolam and gabapentin until you follow-up with your PCP ? Quetiapine changed from 150 mg twice daily to as needed at night for agitation/insomnia ? Continue taking all other home medications as prescribed ? Follow-up with PCP within 1-2 weeks of discharge ? If you do not have a PCP, you can follow-up at the [facility] (you can call [phone] to make an appointment) ? If you wish to follow-up with Dr. Guerra, schedule appointment on Monday afternoons ? Return to ED if symptoms worsen or recur ----- Plan discussed with attending physician Dr. Taylor Guerra MD PGY-1 Internal Medicine Time Spent with Patient Time attestation: Total time spent providing and/or coordinating discharge services: Time spent: Greater than 30 minutes Quality: Stroke Pt Provided Written Stroke Discharge Instructions: No Exam Vital Signs Temp Pulse Resp BP Pulse Ox O2 Del Method 97.1 F 52 L 16 155/59 H 98 Room Air 02/10/25 07:54 02/10/25 08:37 02/10/25 07:54 02/10/25 08:37 02/10/25 07:54 02/10/25 07:54 Narrative Exam General: alert, oriented to self/birthday/place but not year, no acute distress HEENT: NC/AT, mucous membranes moist, bilateral sclera anicteric Cardiovascular: regular rate and rhythm, S1/S2 present, no murmurs appreciated Pulmonary: clear to auscultation bilaterally, no rales/rhonchi/wheezes Abdominal: soft, non-tender, non-distended, no rebound/guarding, normal bowel sounds present Musculoskeletal: normal ROM, no peripheral edema Skin: warm and dry, intact, no rashes Neuro: CN II-XII intact, no focal deficits Discharge Plan Plan Patient Disposition: Home w/HOSPICE Care Plan Goals: ? Hold on taking your donepezil, alprazolam and gabapentin until you follow-up with your PCP ? Quetiapine changed from 150 mg twice daily to as needed at night for agitation/insomnia ? Continue taking all other home medications as prescribed ? Follow-up with PCP within 1-2 weeks of discharge ? If you do not have a PCP, you can follow-up at the [facility] (you can call [phone] to make an appointment) ? If you wish to follow-up with Dr. Guerra, schedule appointment on Monday afternoons ? Return to ED if symptoms worsen or recur Prescriptions/Referrals Prescriptions/Med Rec: New quetiapine 150 mg tablet 150 mg PO HS PRN (Reason: agitation) Qty: 14 0RF Continued Ozempic 1 mg/dose (4 mg/3 mL) pen injector 1 mg subcut QWEEK atorvastatin 40 mg tablet 40 mg PO QDAY benazepril 40 mg tablet 40 mg PO QDAY meloxicam 7.5 mg tablet 7.5 mg PO QDAY Qty: 14 0RF amlodipine 5 mg tablet 5 mg PO HS esomeprazole magnesium 40 mg capsule,delayed release(DR/EC) 40 mg PO QDAY fenofibric acid (choline) 135 mg capsule,delayed release(DR/EC) 135 mg PO QDAY hydrochlorothiazide 25 mg tablet 25 mg PO QDAY montelukast 10 mg tablet 10 mg PO DAILY Held gabapentin 300 mg capsule 300 mg PO QDAY Hold Instructions: Hold until follow-up wit PCP alprazolam 0.5 mg tablet 0.5 mg PO QDAY Hold Instructions: Hold until follow-up wit PCP donepezil 10 mg tablet 10 mg PO HS Hold Instructions: Hold until follow-up with PCP quetiapine 150 mg tablet extended release 24 hr 150 mg PO BID Hold Instructions: Hold until follow-up wit PCP Discontinued hydrocodone-acetaminophen 5-325 mg tablet 1 tab PO Q12H MDD 2 tabs PRN (Reason: pain) Qty: 14 0RF cefdinir 300 mg capsule 300 mg PO BID Qty: 14 0RF Referrals: Hiral Goss MD [Primary Care Provider] - Patient/Caregiver Discharge Instructions Print Language: Yi Stand Alone Forms: Maryjane Award Info., Patient Portal Info Letter Discharge Order Discharge Orders: Discharge (Routine); Ordered 02/10/25 Ordered By: Robert Guerra Quality Discharge Quality Measures VTE prophylaxis Attestestation MD Attestation I have examined the patient, reviewed labs and imaging findings, discussed the case with the resident(s), and reviewed entered orders. I agree with the plan of care as outlined in this note. Time Spent: [address] Taylor MD
== END 2025-02-10 13:25 | disposition hospice, home (50) | DRG 71 ==
LOC: SERX 02-05 00:10 → SERHOLD 02-05 02:08 → S2NX 02-05 12:32 → S3SX 02-08 19:58
PROVIDERS: Student in an Organized Health Care Education/Training Program; Admitting Provider Student in an Organized Health Care Education/Training Program; Emergency Provider Emergency Medicine; PCP Family Medicine; Visit Provider Student in an Organized Health Care Education/Training Program
DX: G93.40 Encephalopathy, unspecified (principal); E87.0 Hyperosmolality and hypernatremia; N17.9 Acute kidney failure, unspecified; F03.93 Unspecified dementia, unspecified severity, with mood disturbance; M19.90 Unspecified osteoarthritis, unspecified site; E86.0 Dehydration; I95.9 Hypotension, unspecified; E11.22 Type 2 diabetes mellitus with diabetic chronic kidney disease; I12.9 Hypertensive chronic kidney disease with stage 1 through stage 4 chronic kidney disease, or unspecified chronic kidney disease; N18.9 Chronic kidney disease, unspecified; E87.8 Other disorders of electrolyte and fluid balance, not elsewhere classified; R09.02 Hypoxemia; I10 Essential (primary) hypertension; F32.A Depression, unspecified; G47.00 Insomnia, unspecified; Z78.1 Physical restraint status; Z87.891 Personal history of nicotine dependence; Z79.4 Long term (current) use of insulin; Z79.899 Other long term (current) drug therapy
CPT/HCPCS: 36415; 36600; 70450; 71045; 80048; 80053; 80307; 80320; 81001; 82140; 82803; 83605; 83690; 83735; 83880; 84100; 84145; 84443; 84484; 85025; 85610; 85730; 87040; 92610; 93005; 93225; 96361; 96372; 96374; 99291; J1200; J1630; J1650; J2470; J3475; J7030; J7040; J7070; A9270; G0480